=== PATIENT | female | born 1970 | race Caucasian/White ===

== ENCOUNTER → 2019-07-27 14:09 | Outpatient (CLI) | payer BC, SELFPAY ==
--- NOTE | ~2019-07-27 | XR_ITS ---
EXAMINATION: XR chest 2V EXAM DATE: 07/27/2019 14:51 INDICATION: Persistent cough. History breast cancer. History asthma. TECHNIQUE: Frontal and lateral projections of the chest obtained and reviewed. There is no prior ronnie dy for comparison. FINDINGS: Moderate hyperinflation. The lungs are clear. There are no pleural effusions. The cardio mediastinal silhouette is within normal limits. There is no pneumothorax suspected. The bones and s oft tissues are unremarkable. Right axillary surgical clips. IMPRESSION: No acute cardiopulmonary findings. Reviewed, dictated and finalized at location A. THERAPIST
== END ==
PROVIDERS: Visit Provider Otolaryngology
DX: R05 Cough (principal); J45.909 Unspecified asthma, uncomplicated; Z85.3 Personal history of malignant neoplasm of breast
CPT/HCPCS: 71046

== ENCOUNTER 2019-08-11 00:30 | Day surgery (SDC) | payer BC, SELFPAY ==
[2019-08-01 15:16] VITALS: BMI 20.7
--- NOTE | ~2019-08-11 | XR_ITS ---
EXAMINATION: XR surgery orthopedic EXAM DATE: 08/11/2019 08:34 INDICATION: Bunionectomy right foot. TECHNIQUE: Fluoroscopy used during XR surgery orthopedic performed by Dr. Anton Knight JR MD. The DAP for this procedure was 0.4 cGycm2. No prior study. FINDINGS: Images demonstrate postoperative change to the first metatarsal neck and head. There is al so proximal phalangeal osteotomy, surgical fixation device. Correlate with procedure note. IMPRESSION: Fluoroscopy used during right bunionectomy. Reviewed, dictated and finalized at location A. DATABASE ADMINISTRATOR
[2019-08-11] MEDS: LACTATED RINGERS 1,000 ML 30 ML IV CONT ×2 (06:29→08:58)
[2019-08-11 06:31] VITALS: BP 111/52; PULSE 82; RESP 20; TEMP 36.5; O2SAT 100
--- NOTE | 2019-08-11 06:49 | WPDANESEPPF ---
Anes - Initial Pre Proc Eval Procedure: Operation Date: 08/11/19 07:30 Proposed Procedures p Renaldo Efraín Bunionectomy Right Foot - Anton Knight JR, MD Date/Time: 08/11/19 06:49 Surgeon: Anton Knight JR, MD Pre Op Diagnosis: Bunion Right Foot Patient Data Age: 49 Gender: F Height: 5 ft 8.5 in Weight: 62.9 kg Last Vital Signs Temp 36.5 C 08/11/19 06:31 Pulse 82 08/11/19 06:31 Resp 20 08/11/19 06:31 BP 111/52 L 08/11/19 06:31 Pulse Ox 100 08/11/19 06:31 Allergies Allergy/AdvReac Type Severity Reaction Status Date / Time No Known Allergies Allergy Verified 08/01/19 15:15 Home Medications Medication Instructions Recorded Confirmed Type levothyroxine [Synthroid] 75 mcg PO DAILY 08/01/19 08/11/19 History tamoxifen 20 mg PO DAILY 08/01/19 08/11/19 History Patient hx anesthesia problems: none Family hx anesthesia problems: none PMFSH Past Medical History Medical History Breast CA Hypothyroid Social History Social History Smoking status: Never smoker Alcohol intake: current Anes - Eval Final PreProcedure Day of Procedure 08/11/19 06:49 Patient weight: normal Heart: regular rate and rhythm Lungs: clear to auscultation Airway: Mallampati scale class 1 Neurological: alert and oriented Last oral intake: >/= 8 hours ASA classification: II Emergent: no Anesthetic plan: proceed Anesthesia type and monitoring: general LMA and standard monitoring Informed Consent: The patient's anesthetic plan and its attendant risks and benefits were discussed with the patient/family/POA. Questions were solicited and answers provided to the satisfaction of the patient/family/POA.
[2019-08-11] MEDS: SCOPOLAMINE 1.5 MG PATCH TRANSDERM (06:54)
--- NOTE | 2019-08-11 07:15 | WPDHPUPDATE1 ---
History and Physical Update Update Date/Time: 08/11/19 07:15 History and Physical has been reviewed, including an updated exam of the patient. There are NO changes in the patient's condition. Risks, benefits, and alternatives have been discussed and questions answered. Patient agrees to proceed with procedure.
--- NOTE | 2019-08-11 07:29 | WPDANESPNB ---
Anes - Peripheral Nerve Block Date/Time: 08/11/19 07:29 I have discussed with the patient/family/POA the placement of a peripheral nerve block for post-operative pain management, including associated risks, benefits, complications, and side effects. Alternative methods of post-operative analgesia were detailed. Questions were solicited and answers provided to the satisfaction of the patient/family/POA. Time-Out: A pre-procedural Time-Out was completed immediately before starting the procedure and confirmed: Patient Identification, Site, Procedure, Patient Position and the Availability of Requisite Equipment. Clinical Indications: Acute post-operative pain management requested by the operative surgeon. Nerve Block Insertion Note Anes-nerve block: posterior fossa sciatic right and other (Saphenous right) Patient position: supine Skin prep: chlorhexidine Needle: 22 gauge, stimulating, insulated echogenic needle. Needle length: 80 mm Technique comment: .25 Injectate: bupivacaine 0.5% with epi 5 mcg/ml (20/10ml) and dexamethasone (mg) (8mg) Observations: tolerated well Complications: none Procedure start time:: 720 Procedure end time:: 726
[2019-08-11] MEDS: ceFAZolin 2 GM/D5W 50 ML 2 GM/50 ML BAG IVPB (07:31)
[2019-08-11] MEDS: KETOROLAC 30 MG/ML VIAL (*BKC) IV PUSH (08:29)
[2019-08-11 08:58] VITALS: BP 83/40; PULSE 77; RESP 16; O2SAT 100
--- NOTE | 2019-08-11 09:06 | PM.OP ---
Procedure Note - Brief Procedure Note - Brief Date of procedure: 08/11/19 Pre-op diagnosis: Bunion Right Foot Surgeon: Anton Knight JR, TUSHAR
--- NOTE | 2019-08-11 09:06 | PM.OP ---
Procedure Note - Brief Procedure Note - Brief Date of procedure: 08/11/19 Pre-op diagnosis: Bunion Right Foot Post-op diagnosis: same Procedure performed: Renaldo Efraín Bunionectomy right foot Anesthesia: GLMA Surgeon: Anton Knight JR, DPM Estimated blood loss (mL): 1 Complications: No immediate complications Condition: stable Disposition: same day
[2019-08-11 09:25] VITALS: BP 93/48; PULSE 71; RESP 16; O2SAT 97
--- NOTE | 2019-08-11 16:15 | OP_ITS ---
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 POSTOPERATIVE DIAGNOSIS: Hallux abductovalgus deformity of the right foot. PROCEDURE: Renaldo Efraín bunionectomy of the right foot. PATHOLOGY: None. ANESTHESIA: General with popliteal fossa block. HEMOSTASIS: Pneumatic ankle tourniquet at 250 mmHg. ESTIMATED BLOOD LOSS: Minimal. MATERIALS USED: Three 3.0 mm Jodie cannulated compression screws, one 8 mm [place]way compression Nitinol staple, 3-0 PDS, 4-0 Vicryl and 4-0 Monocryl. INJECTABLES: None. COMPLICATIONS: None. PROCEDURE IN DETAIL: Under mild sedation, the patient was brought into the operating room and placed on the operating table in the supine position. Pneumatic ankle tourniquet was placed about the patient's right ankle. Following general anesthesia and a previous popliteal fossa block, the foot was then scrubbed, prepped, and draped in the usual aseptic manner. An Esmarch bandage was then used to exsanguinate the patient's right foot and the pneumatic ankle tourniquet was then inflated. Attention was directed to the medial aspect of the first metatarsophalangeal joint of the right foot, where a 6 cm longitudinal incision was made along the medial aspect of the first metatarsophalangeal joint medial to the extensor hallucis longus tendon. This involved the contour of the deformity and was between the plantar and dorsal skin. The incision was continued deep down through the subcutaneous tissues using sharp and blunt dissection. Care was taken to identify and retract all viable neurovascular structures. All bleeders were ligated and cauterized as necessary. At this time, the dissection was continued lateral towards the first interspace via the original skin incision, where the tendon of the extensor hallucis brevis was initially identified and transected. The dissection was continued deep using blunt dissection down to the level of the fibular sesamoid, which was freed of its soft tissue attachments proximally, laterally and distally. The conjoined tendon of the adductor hallucis muscle was then identified and transected at its attachment to the base of the proximal phalanx of the hallux. At this time, the lateral contracture present on the hallux was noted to be reduced and the sesamoid apparatus was noted to float into a more corrected medial position. At this time, a linear capsulotomy was performed over the medial aspect of the first metatarsophalangeal joint. The periosteum and capsular structures were then carefully dissected free of the osseous attachments and reflected medially and laterally thus exposing the head of the first metatarsal at the operative site. Next, a sagittal bone saw was used to resect the medial prominence as well as the dorsal prominence and passed from the operative field. Attention was then directed to the medial aspect of the 1st metatarsal head where through and through V type osteotomy was created in the metaphyseal region of the bone utilizing a sagittal bone saw. The apex of the osteotomy pointed distally with the arms pointing proximal plantarly and proximal dorsally. The dorsal arm was made longer to accommodate internal fixation. Upon completion of the osteotomy, the capital fragment was distracted, and shifted laterally into a more corrected position and impacted upon the 1st metatarsal shaft. At this time, three 0.045 inch K-wires were driven from dorsal to plantar across the osteotomy site to serve as temporary fixation. These K-wires were also serving as guidewires for the 3.0 mm Jodie compression screws. Utilizing standard principles and techniques, three 3.0 mm Jodie partially-threaded cannulated screws were driven from dorsal to plantar acro
== END 2019-08-11 09:47 | disposition home or self-care (01) ==
PROVIDERS: Visit Provider Podiatrist Foot & Ankle Surgery
PROC: (CPT 28299; principal; 2019-08-11 07:30)
DX: M20.11 Hallux valgus (acquired), right foot (principal); G89.18 Other acute postprocedural pain; E03.9 Hypothyroidism, unspecified; Z85.3 Personal history of malignant neoplasm of breast; Z79.810 Long term (current) use of selective estrogen receptor modulators (SERMs)
CPT/HCPCS: 28299; 64450; 64445; A9270; C1713; J0131; J0690; J1100; J1885; J2250; J2405; J2704; J3010; J7120

== ENCOUNTER 2019-09-05 07:51 | Outpatient (CLI) | payer BC, SELFPAY ==
[2019-09-05 08:07] LABS: Basophils Absolute Auto 0.1 K/mm3 (0.0-0.1); Eosinophils Absolute Auto 0.2 K/mm3 (0-0.3); Eosinophils Percent Auto 3.1 % (0-4.4); Hemoglobin 12.1 g/dL (12.0-15.0); Immature Granulocyte Absolute 0.01 K/mm3 (0.00-0.031); Immature Granulocyte Percent A 0.2 % (0-0.5); Lymphocytes Absolute Auto 2.04 K/mm3 (0.9-3.2); Lymphocytes Percent Auto 41.5 % (18.3-44.2); Mean Corpuscular HGB Conc 32.7 g/dl (32-36); Mean Corpuscular Hemoglobin 27.9 pg (26-34); Mean Corpuscular Volume 85.3 fl (80-100); Mean Platelet Volume 11.1 fl (7.4-10.4); Monocytes Absolute Auto 0.4 K/mm3 (0.1-0.6); Monocytes Percent Auto 7.3 % (2.6-8.5); Neutrophils Absolute Auto 2.3 K/mm3 (1.3-6.7); Neutrophils Percent Auto 46.9 % (45.5-73.1); Platelet Count Result 216 k/mm3 (150-375); Red Blood Count 4.34 M/mm3 (4.2-5.4); Red Cell Distribution Width 13.2 % (11.5-14.5); White Blood Count 4.9 K/mm3 (4.5-10.0)
[2019-09-05 08:16] LABS: Hemoglobin A1C 5.3 % (<5.7)
[2019-09-05 08:21] LABS: Alanine Aminotransferase 12 U/L (4-35); Albumin Level 4.1 g/dL (3.5-5.1); Alkaline Phosphatase 74 U/L (38-126); Aspartate Amino Transferase 19 U/L (14-36); Bilirubin,Total 0.3 mg/dL (0.2-1.3); Blood Urea Nitrogen 13 mg/dL (7-17); CRP < 0.5 mg/dL (<1.0); Calcium 9.2 mg/dL (8.4-10.2); Carbon Dioxide 28 mmol/L (22-30); Chloride 107 mmol/L (98-107); Cholesterol 189 mg/dL (0-200); Estimated Glomerular Filt Rate > 60; Glucose 91 mg/dL (65-105); HDL Direct 62 mg/dL; Magnesium 2.2 mg/dL (1.6-2.3); Potassium 4.3 mmol/L (3.4-5.0); Sodium 141 mmol/L (137-145); Triglycerides 157 mg/dL (<150)
[2019-09-05 08:30] LABS: LDL Cholesterol Direct 92 mg/dL
[2019-09-05 08:45] LABS: Iron 112 ug/dL (37-170)
[2019-09-05 08:49] LABS: Erythrocyte Sedimentation Rate 15 mm/hr (0-20)
[2019-09-05 08:54] LABS: Percent Iron Saturation 35 % (20-50)
[2019-09-05 09:02] LABS: Free T4 Free Thyroxine 0.95 ng/mL (0.78-2.19)
[2019-09-07 05:18] LABS: Homocysteine 6.7 umol/L (<10.4)
== END 2019-09-05 07:52 | disposition home or self-care (01) ==
PROVIDERS: PCP Internal Medicine; Visit Provider Internal Medicine
DX: E03.9 Hypothyroidism, unspecified (principal); Z79.899 Other long term (current) drug therapy; I47.1 Supraventricular tachycardia; R00.2 Palpitations
CPT/HCPCS: 36415; 80053; 80061; 82728; 83036; 83090; 83540; 83550; 83735; 84439; 84443; 85025; 85652; 86140

== ENCOUNTER 2019-10-18 10:55 | Outpatient (CLI) | payer BC, SELFPAY ==
[2019-10-19 10:15] LABS: Reference Lab Test Result Negative
== END 2019-10-18 10:56 | disposition home or self-care (01) ==
PROVIDERS: PCP Internal Medicine; Visit Provider Internal Medicine
DX: Z20.828 Contact with and (suspected) exposure to other viral communicable diseases (principal)
CPT/HCPCS: 36415; 86769

== ENCOUNTER 2019-10-23 07:45 | Outpatient (CLI) | payer BC, SELFPAY ==
--- NOTE | 2019-10-23 | ECHO_ITS ---
Patient Info Name: Aleshia Santiago Age: 49 years : 1970 Gender: Female Ht: 68 in Wt: 140 lbs BSA: 1.74 m2 HR: 95 bpm BP: 96 / 70 mmHg Technical Quality: Fair Exam Date: 10/23/2019 8:01 AM Exam Location: [facility] Patient Status: Outpatient Admit Date: 10/23/2019 Staff Ordering Physician: Koko Lozano MD Rental Sales Representative: Macarena Roland RDCS Attending Provider: Koko Lozano MD Referring Physician: Marta ROSS; Exam Type: CA echo doppler color flow Study Info Indications R00.2 - Palpitations I47.1 - Supraventricular tachycardia Complete two-dimensional, color flow and Doppler transthoracic echocardiogram is performed. Summary 1. Left ventricular chamber dimension is normal. 2. Left ventricular systolic function is normal, estimated at 60-65%. 3. The left ventricular diastolic function is normal. 4. E/e' 6 is not elevated. 5. No pulmonary hypertension, estimated pulmonary arterial systolic pressure is 21 mmHg. 6. Normal inferior vena cava with <50% collapse upon inspiration consistent with elevated right atrial pressure, 10 mmHg. Left Ventricle E/e' 6 is not elevated. Left ventricular chamber dimension is normal. Left ventricular systolic function is normal, estimated at 60-65%. The left ventricular diastolic function is normal. Right Ventricle Right ventricular chamber dimension is normal. Right ventricular systolic function is normal. Left Atria Left atrial chamber dimension is normal. Right Atria Right atrial chamber dimension is normal. Aortic Valve The aortic valve is trileaflet. There is no aortic valve stenosis. There is no aortic valve regurgitation. Pulmonic Valve There is no pulmonic regurgitation. Mitral Valve There is no mitral valve stenosis. There is no mitral valve regurgitation. Tricuspid Valve There is no tricuspid valve regurgitation. No pulmonary hypertension, estimated pulmonary arterial systolic pressure is 21 mmHg. Pericardium/Pleural There is no pericardial effusion. Inferior Vena Cava Normal inferior vena cava with <50% collapse upon inspiration consistent with elevated right atrial pressure, 10 mmHg. Aorta The aortic root size at the sinus of Valsalva is normal. Left Ventricular Outflow Tract Name Value Normal LVOT 2D LVOT Diameter 1.9 cm LVOT Doppler LVOT Peak Gradient 4 mmHg LVOT Mean Gradient 2 mmHg LVOT VTI 19 cm LVOT VTI/AV VTI Ratio 0.7 LVOT Stroke Volume 54 ml LVOT CO 4.0 l/min LVOT CI 2.3 l/min/m2 Pulmonic Valve Name Value Normal RVOT Doppler RVOT Peak Gradient 3 mmHg PV Doppler
== END 2019-10-23 07:46 | disposition home or self-care (01) ==
PROVIDERS: PCP Internal Medicine; Visit Provider Internal Medicine
DX: I47.1 Supraventricular tachycardia (principal); R00.2 Palpitations
CPT/HCPCS: 93306

== ENCOUNTER 2019-11-14 10:14 | Outpatient (CLI) | payer BC, SELFPAY ==
--- NOTE | ~2019-11-14 | DEXA_ITS ---
Bone Density Report Name: Aleshia Santiago Age: 49 Sex: Female Ethnicity: White Date of : 1970 Indication: postmenopausal; height loss; cancer; Referring Provider: MARITA SARAH Study: Bone densitometry was performed. Exam Date: November 14, 2019 Accession number: [id number] Bone Density: Region BMD T-score Z-score Classification AP Spine (L1-L4) 0.877 -1.5 -0.9 Osteopenia Femoral Neck (Left) 0.682 -1.5 -0.9 Osteopenia Total Hip (Left) 0.909 -0.3 0.1 Normal Total Hip Bilateral Avg 0.883 -0.5 -0.1 Normal Femoral Neck (Right) 0.662 -1.7 -1.1 Osteopenia Total Hip (Right) 0.855 -0.7 -0.3 Normal World Health Organization criteria for BMD impression classify patients as: Normal (T-score at or above -1.0), Osteopenia (T-score between -1.0 and -2.5), or Osteoporosis (T-score at or below -2.5). 10-year Fracture Risk(1): Major Osteoporotic Fracture 3.8% Hip Fracture 0.4% Reported Risk Factors: [place] (), Neck BMD=0.662, BMI=21.0 (1) FRAX(R) Version 3.08. Fracture probability calculated for an untreated patient. Fracture probability may be lower if the patient has received treatment. Clinical Information Provided by Patient: Has used the following medications: Vitamin D Has the following medical conditions: Cancer Patient maximum height was 69 Menopause Age: 48 Drinks caffeinated beverages Onset of menses at age 17 Number of children 1 Impression: The patient has low bone mass, based on the Right Femoral Neck T-score. The patient has an estimated ten-year risk of hip fracture of 0.4% and an estimated ten-year risk of major fracture of 3.8%, based on the WHO FRAX algorithm. Discussion: BONE DENSITY IS LOW AT ONE OR MORE SKELETAL SITES. This patient's lowest T-score is low at one or more skeletal sites. It meets the World Health Organization's (WHO) criteria for ?low bone mass? (T-score between -1.0 and -2.5). The patient's 10-year risk of fracture as calculated by FRAX is less than the threshold where pharmacological therapy is recommended by the National Osteoporosis Foundation (NOF). However, all treatment decisions require clinical judgment and consideration of individual patient factors, including patient preferences, comorbidities, previous drug use, risk factors not captured in the FRAX model (e.g., frailty, falls, vitamin D deficiency, increased bone turnover, interval significant decline in bone density) and possible under or overestimation of fracture risk by FRAX. The patient should follow a healthful lifestyle (good nutrition with adequate calcium and vitamin D, and appropriate weight-bearing exercise). Follow-Up: Consider repeating this study in 2 to 3 years to reassess this patient's status, or sooner if there is some new clinical indication. Reported by: OLEKSANDR on 11/14/2019 10:44:00
== END 2019-11-14 10:15 | disposition home or self-care (01) ==
LOC: ANHIMG 10:16
PROVIDERS: PCP Internal Medicine; Visit Provider Internal Medicine
DX: N95.1 Menopausal and female climacteric states (principal); Z92.21 Personal history of antineoplastic chemotherapy; M85.89 Other specified disorders of bone density and structure, multiple sites
CPT/HCPCS: 77080

== ENCOUNTER 2019-11-15 16:17 | Outpatient (CLI) | payer BC, SELFPAY ==
[2019-11-15 17:16] LABS: Parathyroid Intact 79.3 pg/mL (7.5-53.5)
== END 2019-11-15 16:18 | disposition home or self-care (01) ==
PROVIDERS: PCP Internal Medicine; Visit Provider Internal Medicine
DX: M85.80 Other specified disorders of bone density and structure, unspecified site (principal)
CPT/HCPCS: 36415; 83970

== ENCOUNTER 2019-11-21 13:08 | Outpatient (CLI) | payer BC, SELFPAY ==
--- NOTE | ~2019-11-21 | US_ITS ---
US thyroid INDICATION: Increased parathyroid hormone. Hypothyroidism. TECHNIQUE: Real-time sonographic images of the thyroid gland were obtained. COMPARISON: No prior studies for comparison. FINDINGS: The right thyroid lobe measures 4.2 x 1.3 x 1 cm. The left thyroid lobe measures 3 x 1.1 x 0.8 cm. There is normal echotexture and echogenicity throughout the thyroid gland. No discrete nodul es identified. Normal vascular flow is present. IMPRESSION: 1. Normal thyroid without discrete nodule or abnormal vascularity. Reviewed, dictated and finalized at location A.
--- NOTE | ~2019-11-21 | NM_ITS ---
EXAMINATION: NM parathyroid imaging w spect DATE: 11/21/2019 16:21 INDICATION: Hyperparathyroidism. TECHNIQUE: 21.3 mCi Tc99m sestamibi was administered intravenously. Anterior images of the neck were obtained immediately and at 2 hours. SPECT images of the neck were obtained. COMPARISON: Thyroid ultrasound 11/21/2019 FINDINGS: There is no focus of persistent activity in the area of the thyroid or mediastinum to sugge st parathyroid adenoma. IMPRESSION: 1. No evidence of a parathyroid adenoma. Reviewed, dictated and finalized at location A.
== END 2019-11-21 13:09 | disposition home or self-care (01) ==
PROVIDERS: PCP Internal Medicine; Visit Provider Internal Medicine
DX: E34.9 Endocrine disorder, unspecified (principal)
CPT/HCPCS: 76536; 78071; A9500

== ENCOUNTER 2020-02-12 00:53 | Outpatient (CLI) | payer BC, SELFPAY ==
[2020-02-12 19:34] LABS: SARS-CoV-2 RNA PCR Negative
== END 2020-02-12 00:54 | disposition home or self-care (01) ==
LOC: ANHCOVIDDT 00:53
PROVIDERS: PCP Internal Medicine; Visit Provider Obstetrics & Gynecology
DX: Z01.812 Encounter for preprocedural laboratory examination (principal); Z20.828 Contact with and (suspected) exposure to other viral communicable diseases
CPT/HCPCS: 87635; C9803; U0003

== ENCOUNTER 2020-02-14 02:45 | Day surgery (SDC) | payer BC, SELFPAY ==
[2020-02-07 14:10] VITALS: BMI 20.7
--- NOTE | 2020-02-13 12:49 | P.PNAN_ITS ---
Anes - Initial Pre Proc Eval Procedure: Operation Date: 02/14/20 14:30 Proposed Procedures p Hysteroscopy Dilation and Curettage - Ye Tobar MD Date/Time: 02/13/20 12:49 Surgeon: Ye Tobar MD Pre Op Diagnosis: Post Menopausal Bleeding Patient Data Age: 49 Gender: F Height: 5 ft 8.5 in Weight: 62.6 kg Allergies Allergy/AdvReac Type Severity Reaction Status Date / Time No Known Allergies Allergy Verified 02/07/20 14:10 Home Medications Medication Instructions Recorded Confirmed Type clonazepam 0.5 mg tablet 0.5 mg PO DAILY PRN #30 tablet 11/22/19 02/14/20 Rx levothyroxine 75 mcg tablet 75 mcg PO DAILY #90 tablet 01/17/20 02/14/20 Rx bupropion HCl 150 mg 24 hr tablet, 300 mg PO QAM #180 tablet 01/18/20 02/14/20 Rx extended release Patient hx anesthesia problems: post op nausea/vomiting (with GA; will give Ondansetron) Family hx anesthesia problems: none PMFSH Past Medical History Medical History BMI 20.0-20.9, adult BMI 21.0-21.9, adult Breast CA Cervicalgia Cough Elevated parathyroid hormone Encounter for preventive health examination Encounter to establish care Exposure to COVID-19 virus GERD (gastroesophageal reflux disease) Heart palpitations History of chemotherapy Hot flashes Hx of breast cancer Hypersomnolence Hypothyroid Hypothyroidism (acquired) Insomnia Mild reactive airways disease On superintendent terminal drug therapy Post menopausal syndrome SVT (supraventricular tachycardia) Surgical History Surgical History H/O right breast biopsy H/O umbilical hernia repair Hx of section S/P cholecystectomy Status post bunionectomy Social History Social History Smoking status: Never smoker Alcohol intake: current Anes - Eval Final PreProcedure Day of Procedure 02/13/20 12:49 Patient weight: normal Heart: regular rate and rhythm Lungs: clear to auscultation Airway: Mallampati scale class II Neurological: alert and oriented Last oral intake: >/= 8 hours ASA classification: II Emergent: no Anesthetic plan: proceed Anesthesia type and monitoring: general GIVS and standard monitoring Informed Consent: The patient's anesthetic plan and its attendant risks and benefits were discussed with the patient/family/POA. Questions were solicited and answers provided to the satisfaction of the patient/family/POA.
--- NOTE | 2020-02-13 23:11 | PM.IMHP ---
H&P: HPI History of Present Illness Date/Time: 02/13/20 23:11 Chief complaint: Post Menopausal Bleeding Narrative: 49 y/o who has finished a 10 year course of tamoxifen after treatment for invasive breast cancer. She was menopausal after chemotherapy, but has just had an episode of vaginal bleeding. Ultrasound exam in the office demonstrates an inhomogeneous endometrium measuring 4.35mm. Bilateral ovaries are unremarkable. No free fluid is noted. Review of Systems Review of Systems: All systems reviewed & are unremarkable except as noted in HPI and below PMFSH Past Medical History Medical History BMI 20.0-20.9, adult BMI 21.0-21.9, adult Breast CA Cervicalgia Cough Elevated parathyroid hormone Encounter for preventive health examination Encounter to establish care Exposure to COVID-19 virus GERD (gastroesophageal reflux disease) Heart palpitations History of chemotherapy Hot flashes Hx of breast cancer Hypersomnolence Hypothyroid Hypothyroidism (acquired) Insomnia Mild reactive airways disease On fpc drug therapy Post menopausal syndrome SVT (supraventricular tachycardia) Surgical History Surgical History H/O right breast biopsy H/O umbilical hernia repair Hx of section S/P cholecystectomy Status post bunionectomy Social History Social History Smoking status: Never smoker Alcohol intake: current Meds Home Medications and Allergies Home Medications Medication Instructions Recorded Confirmed Type clonazepam 0.5 mg tablet 0.5 mg PO DAILY PRN #30 tablet 11/22/19 02/07/20 Rx levothyroxine 75 mcg tablet 75 mcg PO DAILY #90 tablet 01/17/20 02/07/20 Rx bupropion HCl 150 mg 24 hr tablet, 300 mg PO QAM #180 tablet 01/18/20 02/07/20 Rx extended release Allergies Allergy/AdvReac Type Severity Reaction Status Date / Time No Known Allergies Allergy Verified 02/07/20 14:10 Exam Const: Orientation/consciousness: patient oriented x3 Other: Well-developed, well-nourished female in no acute distress. Neck: Thyroid: thyroid normal Lymphatic: no lymphadenopathy noted (in neck, axilla or inguinal nodes) Resp: Effort & Inspection: normal respiratory effort Auscultation: clear to auscultation bilaterally Cardio: Rate: regular rate Rhythm: regular rhythm Heart sounds: S1 normal heart sound present and S2 normal heart sound present GI: Other: ABD: Soft, nontender, nondistended. No guarding or rebound tenderness. No hepatosplenomegaly. : General: Yes no CVA tenderness Other: External genitalia: normal female hair distribution, without lesion. Urethral meatus: no lesion, non prolapsed. Bladder: no mass, nontender Vagina: poorly-estrogenized, without lesion or discharge. No cystocele or rectocele. Cervix: no lesion or discharge. Uterus: small, anteverted, freely mobile, nontender Adnexa: no mass or tenderness. Anus/perineum: no lesions, nontender Back/Spine/Pelvis: Back: no CVA tenderness Skin: General skin exam: normal color and no rashes or lesions noted Neuro: General: patient oriented x3 Extrem: Other: Extremities: nontender with no edema Psych: Mental Status: mental status grossly normal Affect: normal affect Assessment and Plan Assessment and plan (1) Postmenopausal bleeding: Code(s): N95.0 - Postmenopausal bleeding Status: Acute Assessment and Plan: A: Postmenopausal vaginal bleeding with abnormal pelvic ultrasound, in the setting of fpc tamoxifen therapy. P: I recommended more thorough evaluation of the endometrium. She would like to go ahead with hysteroscopy / D&C. She understands risks of surgery to include risks of anesthesia, risks of pain, infection, bleeding, blood products, thromboembolic phenomena and damage to adjacent structures such as bowel, bladde
--- NOTE | 2020-02-14 12:07 | WPDHPUPDATE1 ---
History and Physical Update Update Date/Time: 02/14/20 12:07 History and Physical has been reviewed, including an updated exam of the patient. There are NO changes in the patient's condition. Risks, benefits, and alternatives have been discussed and questions answered. Patient agrees to proceed with procedure.
[2020-02-14 12:30] VITALS: BP 132/68; PULSE 94; RESP 20; TEMP 36.3; O2SAT 100
[2020-02-14] MEDS: LACTATED RINGERS 1,000 ML 30 ML IV CONT ×2 (12:35→15:00)
[2020-02-14] MEDS: ACETAMINOPHEN 500 MG TABLET 1000 MG PO (12:40)
--- NOTE | 2020-02-14 13:31 | PM.PROC ---
Procedure Note - Detailed Date of procedure: 02/14/20 Pre-op diagnosis: Post Menopausal Bleeding Postmenopausal vaginal bleeding Abnormal pelvic ultrasound Post-op diagnosis: same Procedure performed: Hysteroscopy D&C Description of procedure: The patient was taken to the operating room where she was prepared and draped in the usual sterile fashion in the dorsal lithotomy position. A sterile speculum was placed into the vagina. The anterior lip of the cervix was grasped with single-tooth tenaculum. Ten mL of 1% lidocaine was administered in a paracervical block. The cervix was then gently dilated using Hegar dilators until an 8 mm dilator could be passed. Hysteroscopy was performed using sterile saline as a distention medium. Findings are as noted above. Sharp curettage was then performed, and endometrial curettings were collected on a Telfa pad and passed off to be sent to pathology. Hemostasis was excellent. Sponge, lap, needle and instrument counts were correct. The patient was awakened and taken to the recovery room in stable condition. I was present and scrubbed through the entire procedure. Implants: None Anesthesia: MAC and local (1% lidocaine paracervical block) Surgeon: Ye Tobar MD Estimated blood loss (mL): 5 Drains: No Packing: No Pathology: yes (Endometrial curettings) Complications: None Condition: stable Disposition: PACU Findings: Unremarkable endometrial cavity. Both tubal ostia seen.
[2020-02-14 13:34] VITALS: BP 82/40; PULSE 85; RESP 14; TEMP 36.5; O2SAT 96
[2020-02-14 13:59] VITALS: BP 91/46; PULSE 72; RESP 14
[2020-02-14 14:30] VITALS: BP 102/57; PULSE 64; RESP 16
[2020-02-14 15:00] VITALS: BP 100/66; PULSE 61; RESP 16
== END 2020-02-14 15:15 | disposition home or self-care (01) ==
PROVIDERS: PCP Internal Medicine; Visit Provider Obstetrics & Gynecology
PROC: 0U5B8ZZ Destruction of Endometrium, Via Natural or Artificial Opening Endoscopic (ICD-10-PCS; CPT 58563; principal; 2020-02-14 14:30)
DX: N95.0 Postmenopausal bleeding (principal); Z85.3 Personal history of malignant neoplasm of breast; Z92.21 Personal history of antineoplastic chemotherapy; E03.9 Hypothyroidism, unspecified; K21.9 Gastro-esophageal reflux disease without esophagitis; I47.1 Supraventricular tachycardia; G47.00 Insomnia, unspecified; Z79.899 Other long term (current) drug therapy; N88.8 Other specified noninflammatory disorders of cervix uteri
CPT/HCPCS: 58558; 88305; A9270; J1100; J2250; J2405; J2704; J3010; J7030; J7120

== ENCOUNTER 2020-03-10 08:39 | Emergency (ER) | payer BC, SELFPAY ==
--- NOTE | ~2020-03-10 | XR_ITS ---
XR knee RT 3V DATE: 03/10/2020 09:07 INDICATION: Fall one day ago; medial and anterior pain TECHNIQUE: Seguin and AP and lateral views COMPARISON: None FINDINGS: No fracture or dislocation or joint effusion. No periosteal reaction or bone destruction. J oint spaces are well preserved. No radiopaque intra-articular loose body or chondrocalcinosis. IMPRESSION: Negative Reviewed, dictated and finalized at location A. IMPRESSION: Negative
[2020-03-10 08:42] VITALS: BP 123/71; PULSE 94; RESP 18; TEMP 36.6; O2SAT 100
--- NOTE | 2020-03-10 09:19 | ED.LOWEXIN ---
HPI - Extremity Injury (Lower) General Chief Complaint: Extremity Injury, Lower Stated Complaint: fall/right knee injury Time Seen by Provider: 03/10/20 09:11 Source: patient History of Present Illness HPI Narrative: Patient presents emergency department for right knee pain that started earlier this morning. Patient states she was exiting a tent, tripped over the entrance, landing on her left knee, and twisting her right knee. Patient states this feels like her ACL tear to her left knee which she had in the past before when she was 22. She took 800 of Motrin this morning. Pain is worse with movement. Denies numbness or tingling. Related Data Allergies Allergy/AdvReac Type Severity Reaction Status Date / Time No Known Allergies Allergy Verified 03/10/20 08:45 Review of Systems Review of Systems: Narrative: CONSTITUTIONAL: Denies fever, chills, or sweats. EYES: Denies visual changes, redness, or discharge. ENT: Denies rhinorrhea, congestion, sore throat, or otalgia. CARDIOVASCULAR: Denies chest pain, palpitations, or edema. RESPIRATORY: Denies cough or dyspnea. GASTROINTESTINAL: Denies abdominal pain, nausea, vomiting, or diarrhea. GENITOURINARY: Denies dysuria or hematuria. SKIN: Denies rash or itching. MUSCULOSKELETAL: Denies back pain. Reports right knee pain. NEUROLOGIC: Denies headache, numbness, dizziness, or weakness. PSYCHIATRIC: Denies anxiety or depression. All systems reviewed & are unremarkable except as noted in HPI and below (ROS) [facility] Past Medical History Medical History BMI 20.0-20.9, adult BMI 21.0-21.9, adult Breast CA Cervicalgia Cough Elevated parathyroid hormone Encounter for preventive health examination Encounter to establish care Exposure to COVID-19 virus GERD (gastroesophageal reflux disease) Heart palpitations History of chemotherapy Hot flashes Hx of breast cancer Hypersomnolence Hypothyroid Hypothyroidism (acquired) Insomnia Mild reactive airways disease On custodial drug therapy Post menopausal syndrome SVT (supraventricular tachycardia) Surgical History Surgical History H/O right breast biopsy H/O umbilical hernia repair Hx of section S/P cholecystectomy Status post bunionectomy Social History Social History Smoking status: Never smoker Alcohol intake: current Gender identity (if verbalized by the patient): Female Exam Narrative: Exam Narrative: GENERAL: Well-appearing, well-nourished, and in no acute distress. HEAD: Normocephalic, atraumatic. EYES: PERRLA and EOMI. ENT: Nares clear, no rhinorrhea or epistaxis. Mucous membranes moist. NECK: Supple. CHEST: Clear to auscultation. No respiratory distress. HEART: Regular rate and rhythm. No murmur heard. Normal peripheral pulses. ABDOMEN: Soft, nontender, nondistended, normal active bowel sounds. EXTREMITIES: Right knee pain with valgus force. Medial right knee swelling. Pain to right knee with range of motion SKIN: Warm, dry, no rash. NEURO: No focal deficits. Alert and oriented x3. PSYCH: Normal mood and affect. Course Reevaluation(s) Reevaluation #1: 9:50AM -reevaluated patient, no new complaints. Patient likely has problem with ACL, MCL, or possibly meniscal tear. Will prescribe knee brace, patient states she has crutches at home. Counseled patient to rest ice, and elevate the knee. Counseled patient to follow-up with her orthopedic surgeon within 1 week. Return to emergency department if symptoms persist, worsen, or other concerns. Can take NSAIDs or Tylenol as needed for pain. Vital Signs Vital signs: Vital Signs Temperature 36.6 C 03/10/20 08:42 Pulse Rate 94 03/10/20 08:42 Respiratory Rate 18 03/10/20 08:42 Blood Pressure 123/71 03/10/20 08:42 Pulse Oximetry 100 03/10/20 08:42 Temperature 36.6 C 03/10/20 08
[2020-03-10] MEDS: ACETAMINOPHEN 325 MG TABLET 650 MG PO (09:38)
[2020-03-10] MEDS: KETOROLAC (*BKC) 60 MG/2 ML VIAL 15 MG IM (09:39)
[2020-03-10 10:18] VITALS: BP 128/88; PULSE 80; RESP 20; O2SAT 100
== END 2020-03-10 10:20 | disposition home or self-care (01) ==
PROVIDERS: Emergency Provider Emergency Medicine; PCP Internal Medicine
DX: M25.561 Pain in right knee (principal); Z85.3 Personal history of malignant neoplasm of breast; K21.9 Gastro-esophageal reflux disease without esophagitis; Z92.21 Personal history of antineoplastic chemotherapy; E03.9 Hypothyroidism, unspecified; J45.909 Unspecified asthma, uncomplicated; W01.0XXA Fall on same level from slipping, tripping and stumbling without subsequent striking against object, initial encounter; X50.9XXA Other and unspecified overexertion or strenuous movements or postures, initial encounter
CPT/HCPCS: 73562; 96372; 99283; A9270; J1885

== ENCOUNTER 2020-04-06 08:11 | Outpatient (CLI) | payer BC, SELFPAY ==
--- NOTE | ~2020-04-06 | CT_ITS ---
EXAMINATION:CT chest wo con DATE: 04/06/2020 08:33 INDICATION: Chronic cough. TECHNIQUE: Computed tomography (CT) of the chest was performed without intravenous contrast. Automate d exposure control and iterative reconstruction technique were employed. The dose-length product (DLP ) was 142.83 mGy-cm. COMPARISON: None. FINDINGS: There is mild scarring at right lung apex and anterolateral aspect of right lung, likely ra diation fibrosis. There is minimal scarring at left lung apex. Calcified left lung nodules and calcif ied left hilar and mediastinal lymph nodes are consistent with old granulomatous disease. No pleural effusion. The heart size is normal. No pericardial effusion. There are surgical clips in right axilla . Calcifications in the spleen are consistent with old granulomatous disease. There are 4 masses in t he liver measuring up to 3.7 cm. There are changes of cholecystectomy. The bones are unremarkable. IMPRESSION: 1. Liver masses suspicious for metastatic disease. Abdomen MRI without and with contrast is recommend ed. 2. 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 Reviewed, dictated and finalized at location A. IMPRESSION: 1. Liver masses suspicious for metastatic disease. Abdomen MRI without and with contrast is recommended. 2. 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
== END 2020-04-06 08:12 | disposition home or self-care (01) ==
PROVIDERS: PCP Internal Medicine; Visit Provider Otolaryngology
DX: R91.8 Other nonspecific abnormal finding of lung field (principal); K76.9 Liver disease, unspecified
CPT/HCPCS: 71250

== ENCOUNTER 2020-04-08 14:29 | Outpatient (CLI) | payer BC, SELFPAY ==
[2020-04-08 15:23] LABS: Anion Gap 8 mmol/L (8-16); Blood Urea Nitrogen 16 mg/dL (7-17); Calcium 9.3 mg/dL (8.4-10.2); Carbon Dioxide 30 mmol/L (22-30); Chloride 103 mmol/L (98-107); Cholesterol 220 mg/dL (0-200); Estimated Glomerular Filt Rate > 60; Glucose 93 mg/dL (65-105); HDL Direct 86 mg/dL; Potassium 4.3 mmol/L (3.4-5.0); Sodium 141 mmol/L (137-145); Triglycerides 156 mg/dL (<150)
[2020-04-08 15:33] LABS: LDL Cholesterol Direct 114 mg/dL
[2020-04-08 16:16] LABS: Free T4 Free Thyroxine 0.89 ng/mL (0.78-2.19); Vitamin D 25 Hydroxy 48.3 ng/mL
[2020-04-08 17:18] LABS: Parathyroid Intact 69.6 pg/mL (7.5-53.5)
== END 2020-04-08 14:30 | disposition home or self-care (01) ==
LOC: ANHLAB 14:30
PROVIDERS: PCP Internal Medicine; Visit Provider Internal Medicine
DX: Z79.899 Other long term (current) drug therapy (principal); E03.9 Hypothyroidism, unspecified; E34.9 Endocrine disorder, unspecified
CPT/HCPCS: 36415; 80048; 80061; 82306; 82310; 83970; 84439; 84443

== ENCOUNTER 2020-04-15 14:02 | Outpatient (CLI) | payer BC, SELFPAY ==
--- NOTE | ~2020-04-15 | MR_ITS ---
EXAMINATION: MR abdomen wo/w con DATE: 04/15/2020 16:09 INDICATION: Hepatomegaly, not elsewhere classified. Liver masses. Breast cancer. TECHNIQUE: Magnetic resonance imaging (MRI) of the abdomen was performed without and with 10 mL Multi Merrill intravenous contrast. Sequences included coronal T2-weighted FS FSE, coronal and axial FS FIEST A, axial T2-weighted FSE, coronal LAVA-flex, axial STIR FSE, axial DWI, axial dual-echo T1-weighted F SPGR, and axial LAVA. Postcontrast sequences included coronal LAVA-flex and a time course of axial LA VA. COMPARISON: Chest CT 04/06/2020 FINDINGS: There are approximately 9 hyperenhancing masses scattered in the liver. The largest masses demonstrat e interrupted peripheral puddling of contrast, consistent with hemangiomas. None of the masses demons trate washout. There are changes of cholecystectomy. The spleen, pancreas, adrenal glands, and kidney s are normal. There are no dilated loops of bowel. There are no pathologically enlarged lymph nodes. There is no free intraperitoneal fluid. There are lesions of increased T2-weighted signal intensity i n the T10 and T12 vertebral bodies and right ilium measuring up to 15 mm. IMPRESSION: 1. Liver masses, likely benign. 2. Bone lesions, most likely atypical hemangiomas. Metastatic disease cannot be excluded. Reviewed, dictated and finalized at location A.
== END 2020-04-15 14:03 | disposition home or self-care (01) ==
PROVIDERS: PCP Internal Medicine; Visit Provider Internal Medicine
DX: R16.0 Hepatomegaly, not elsewhere classified (principal); K76.9 Liver disease, unspecified; R93.7 Abnormal findings on diagnostic imaging of other parts of musculoskeletal system
CPT/HCPCS: 74183; A9577

== ENCOUNTER 2020-04-22 07:32 | Outpatient (CLI) | payer BC, SELFPAY ==
--- NOTE | ~2020-04-22 | XR_ITS ---
EXAMINATION: XR thoracic spine 3V DATE: 04/22/2020 08:05 INDICATION: Disorder of the bone, unspecified TECHNIQUE: AP, lateral and lateral swimmer's views of the thoracic spine were obtained. COMPARISON: 04/15/2020 and 04/06/2020 FINDINGS: There is no fracture, dislocation, or subluxation. The vertebral body heights, alignment, a nd intervertebral disc spaces are normal. The paravertebral soft tissues are unremarkable. Lesions of the T10 and T12 vertebral bodies described on the comparison MRI examination are not demonstrated. C holecystectomy clips are noted in the right upper quadrant. Also noted are surgical clips in the righ t axilla. IMPRESSION: 1. Unremarkable thoracic spine. Reviewed, dictated and finalized at location A. EAR POWERPLANT SUPERVISOR
--- NOTE | ~2020-04-22 | NM_ITS ---
EXAMINATION: NM bone scan whole body DATE: 04/22/2020 11:13 INDICATION: Disorder of bone, unspecified. Bone lesions indeterminate 4 metastatic disease on MRI estela ed 04/15/2020 TECHNIQUE: 26.4 mCi Tc-99m HDP was administered intravenously. Delayed whole-body scintigrams were o btained. COMPARISON: MRI dated 04/15/2020 FINDINGS: No abnormal increased uptake associated with the previously noted lesions at T10, T12 and at the post erior right iliac crest. Degenerative joint centered uptake at the right knee, medial compartment of the left knee and at the right first metatarsophalangeal joint. Minimal likely extravasated soft tiss ue activity related to injection at the left antecubital fossa. No other suspicious bone lesions. IMPRESSION: 1. No evident metastatic disease. Specifically no abnormal uptake associated with the 3 lesions ident ified on prior MRI which most likely represent atypical hemangiomas. Reviewed, dictated and finalized at location A. INE CLOTHING MAN IMPRESSION: 1. No evident metastatic disease. Specifically no abnormal uptake associated wi th the 3 lesions identified on prior MRI which most likely represent atypical h emangiomas.
--- NOTE | ~2020-04-22 | XR_ITS ---
EXAMINATION: XR pelvis 1-2V EXAM DATE: 04/22/2020 08:38 INDICATION: M89.9 - Disorder of bone, unspecified . TECHNIQUE: Pelvis frontal projection(s) obtained and reviewed. Comparison is made to prior examinatio n from 06/03/2005. FINDINGS: Hip joints are symmetric and unremarkable. No evidence of avascular necrosis. Sacrum, sacr oiliac joints, sacral arcuate lines are intact. There are no acute fractures or dislocations identifi ed. There is no subcutaneous gas. The soft tissue is unremarkable. There are no radiopaque foreig n bodies. IMPRESSION: 1. Unremarkable XR pelvis 1-2V exam. Reviewed, dictated and finalized at location B. LESOFT ANALYST
== END 2020-04-22 07:33 | disposition home or self-care (01) ==
PROVIDERS: PCP Internal Medicine; Visit Provider Internal Medicine
DX: M89.9 Disorder of bone, unspecified (principal)
CPT/HCPCS: 72072; 72170; 78306; A9561

== ENCOUNTER 2021-06-16 09:53 | Outpatient (CLI) | payer OTHER, SELFPAY ==
--- NOTE | 2021-06-16 15:13 | WPDPFTINT ---
PFT Procedure Performed PFT Procedure Performed Spirometry with Pre/Post Bronchodilator Plethysmography (Lung Vol) Diffusing Cap (DLCO) Flow Vol Loop PFT Interpretation Lung volumes were measured with the body plethysmography method. Lung volumes are unremarkable. Spirometry showed diminished expiratory flow rates and a diminished FEV1 to FVC ratio 60%, consistent with obstructive airway disease. Following administration of a bronchodilator, there was no significant increase in expiratory flow rates. Lung diffusion capacity is borderline normal at 78% predicted. The flow volume loop is consistent with obstructive airway disease. Impression: Mild obstructive airway disease with no response to bronchodilators on this testing.
== END 2021-06-16 09:54 | disposition home or self-care (01) ==
PROVIDERS: PCP Internal Medicine; Visit Provider Internal Medicine
DX: R05.9 Cough, unspecified (principal); R94.2 Abnormal results of pulmonary function studies
CPT/HCPCS: 94060; 94726; 94729

== ENCOUNTER 2021-06-16 11:04 | Outpatient (CLI) | payer OTHER, SELFPAY ==
--- NOTE | ~2021-06-16 | CT_ITS ---
EXAMINATION: CT chest high resolution w con INDICATION: Cough TECHNIQUE: Computed tomographic images of the chest were obtained after the administration of 75 cc o f Omnipaque 350 intravenous contrast. The dose-length product (DLP) was 157.10 mGy-cm. Automated expo sure control and iterative reconstruction technique were employed. COMPARISON: 04/06/2020 FINDINGS: There is unchanged mild scarring at the right lung apex and the anterolateral aspect of the right lung. No new airspace opacities are identified. There is no pleural effusion or pneumothorax. Calcified pulmonary nodules and calcified hilar lymph nodes are consistent with old granulomatous dis ease. No pathologically enlarged thoracic lymph nodes are identified. The heart size is normal. There is mild thoracic spondylosis. There are changes of right axillary lymph node dissection. The gallbla dder is surgically absent. Partially enhancing liver lesions are not significantly changed. IMPRESSION: 1. No CT correlate for the patient's symptoms. Reviewed, dictated and finalized at location F. BENDER
== END 2021-06-16 11:05 | disposition home or self-care (01) ==
LOC: ANHIMG 11:10
PROVIDERS: PCP Internal Medicine; Visit Provider Internal Medicine
DX: R05.9 Cough, unspecified (principal)
CPT/HCPCS: 71260; 94060; 94726; 94729; Q9967

== ENCOUNTER 2021-06-17 09:36 | Outpatient (CLI) | payer OTHER, SELFPAY ==
--- NOTE | ~2021-06-17 | XR_ITS ---
EXAMINATION: XR barium swallow modified EXAM DATE: 06/17/2021 10:14 INDICATION: R05 - Cough . TECHNIQUE: Modified barium esophagram was performed by speech pathologist with radiologist Dr. Ba Lopes present to administered fluoroscopy. Speech pathologist administered barium in varying consis tencies as per speech pathologist documentation. This was recorded on tape. There was total fluorosc opic time of 0.2 minutes. The DAP for this procedure was 0.16 Gycm2. A total of 1 images sent to [facility] from the exam. FINDINGS: Oral stage: Normal. Pharyngeal phase: Normal. Laryngeal penetration: None. Aspiration: None. Laryngeal sensitivity: Present. IMPRESSION: Normal modified esophagram exam. Please refer to speech pathologist findings and specifi c feeding recommendations. Reviewed, dictated and finalized at location A. AR REPAIR TECHNICIAN IMPRESSION: Normal modified esophagram exam. Please refer to speech pathologis t findings and specific feeding recommendations.
--- NOTE | 2021-06-17 11:42 | STOPEVAL ---
Thank you for referring Aleshia Henderson to [facility].? Attending Provider: Koko Lozano MD Assessment Status Evaluation Other History Hx Cancer Yes: s/p breast cancer with chemotherapy/radiation Evaluation Information Problem Diagnosis Cough Onset approximately 2 years ago Cause Respiratory illness Subjective Information Patient denies allergies but Query Text:As Reported By Patient/ states that a recent test Family revealed asthma and she will begin an inhaler this week. States a ENT evaluation without endoscopy revealed no significant issues. Diagnostic Tests X-Rays For This Problem No MRI For This Problem No Other Tests For This Problem Yes Prior Level of Function Prior Swallow Level Prior Intake Method Oral Prior Diet Regular (Level 7 Diet) Prior Liquid Consistency Thin (Level 0 Diet) Prior Cognition/Communication Prior Communication Level No Impairment Prior Cognitive Function Able to Function Independently Prior Ability to Handle Finances Independent Pain Assessment Timing of Pain Assessment Timing of Pain Assessment Assessment Self Report Self Report Pain Level 0 Pain Score Pain Score 0: Self Report Modified Barium Swallow Evaluation Consistency Mixed Consistency 5 mL Method of Presentation Spoon Oral Preparatory Symptoms None,Within Functional Limits Oral Phase Symptoms None,Within Functional Limits Pharyngeal Phase Symptoms None,Within Functional Limits Severity of Vallecular Residue None - 0% No Residue Severity of Pyriform Sinus Residue None - 0% No Residue 8 Point Laryngeal Penetration-Aspiration Material Does Not Enter Airway Scale Cervical/Esophageal Symptoms None,Within Functional Limits Pureed Consistency 5 mL Method of Presentation Spoon Oral Preparatory Symptoms None,Within Functional Limits Oral Phase Symptoms None,Within Functional Limits Pharyngeal Phase Symptoms None,Within Functional Limits Severity of Vallecular Residue None - 0% No Residue Severity of Pyriform Sinus Residue None - 0% No Residue 8 Point Laryngeal Penetration-Aspiration Material Does Not Enter Airway Scale Cervical/Esophageal Symptoms None,Within Functional Limits Pureed Consistency 3 mL Method of Presentation Spoon Oral Preparatory Symptoms None,Within Functional Limits Oral Phase Symptoms None,Within Functional Limits Pharyngeal Phase Symptoms None,Within Functional Limits Severity of Vallecular Residue None - 0% No Residue Severity of Pyriform Sinus Residue None - 0% No Residue 8 Point Laryngeal Penetration-Aspira
== END 2021-06-17 09:37 | disposition home or self-care (01) ==
LOC: ANHIMG 09:42
PROVIDERS: PCP Internal Medicine; Visit Provider Internal Medicine
DX: R05.9 Cough, unspecified (principal)
CPT/HCPCS: 92611

== ENCOUNTER 2021-06-19 16:31 | Outpatient (CLI) | payer OTHER, SELFPAY ==
--- NOTE | ~2021-06-19 | MR_ITS ---
EXAMINATION: MR lumbar spine wo con DATE: 06/19/2021 17:09 INDICATION: Low back pain. TECHNIQUE: Magnetic resonance imaging (MRI) of the lumbar spine was performed without intravenous con trast. Sequences included sagittal T2-weighted FSE, sagittal T2-weighted FS FSE, sagittal T1-weighted FSE, and axial T2-weighted FSE. COMPARISON: None FINDINGS: Bone alignment is normal. Vertebral body heights are normal. There is mildly decreased disc height at L5-S1. The distal spinal cord signal intensity is normal. The conus medullaris is at T12-L 1. The following disc levels are specifically discussed: L1-L2: The disc does not extend beyond the endplate margin. There is mild bilateral facet joint osteo arthritis. There is no neural foraminal stenosis. There is no central canal stenosis. L2-L3: The disc does not extend beyond the endplate margin. There is mild bilateral facet joint osteo arthritis. There is no neural foraminal stenosis. There is no central canal stenosis. L3-L4: The disc is mildly bulging. There is no facet joint osteoarthritis. There is mild bilateral ne ural foraminal stenosis. There is no central canal stenosis. L4-L5: The disc is mildly bulging. There is no facet joint osteoarthritis. There is mild bilateral ne ural foraminal stenosis. There is mild central canal stenosis. L5-S1: The disc is bulging and has an annular fissure. There is mild bilateral facet joint osteoarthr itis. There is mild left neural foraminal stenosis. There is mild central canal stenosis. IMPRESSION: 1. Mild lumbar spondylosis. Reviewed, dictated and finalized at location A. L CANOE INSPECTOR IMPRESSION: 1. Mild lumbar spondylosis.
== END 2021-06-19 16:32 | disposition home or self-care (01) ==
LOC: ANHIMG 16:36
PROVIDERS: PCP Internal Medicine; Visit Provider Internal Medicine
DX: M47.817 Spondylosis without myelopathy or radiculopathy, lumbosacral region (principal); M48.07 Spinal stenosis, lumbosacral region; Z85.3 Personal history of malignant neoplasm of breast; M47.27 Other spondylosis with radiculopathy, lumbosacral region
CPT/HCPCS: 72148

== ENCOUNTER 2021-08-25 00:33 | Day surgery (SDC) | payer OTHER, SELFPAY ==
[2021-08-18 12:41] VITALS: BMI 20.1
--- NOTE | 2021-08-25 11:22 | WPDANESEPPF ---
Anes - Initial Pre Proc Eval Procedure: Operation Date: 08/25/21 13:00 Proposed Procedures p Esophagogastroduodenoscopy & Screening Colonoscopy - Mian Morgan MD Date/Time: 08/25/21 11:22 Surgeon: Mian Morgan MD Pre Op Diagnosis: GERD, neoplasm screening Patient Data Age: 51 Gender: F Height: 1.73 m Weight: 60 kg Allergies Allergy/AdvReac Type Severity Reaction Status Date / Time No Known Allergies Allergy Verified 08/25/21 11:50 Home Medications Medication Instructions Recorded Confirmed Type ascorbic acid (vitamin C) 1,000 mg 1 g PO DAILY 07/15/20 08/25/21 History tablet omega-3 fatty acids 1,000 mg 1,000 mg PO DAILY 07/15/20 08/25/21 History capsule albuterol sulfate 90 mcg/actuation See Rx Instructions .ROUTE 08/15/20 08/25/21 Rx breath activated powder inhaler .COMPLEX #1 ea melatonin 10 mg tablet 10 mg PO QHS 10/15/20 08/25/21 History levothyroxine 75 mcg tablet See Rx Instructions .ROUTE 05/14/21 08/25/21 Rx .COMPLEX #90 tablet zinc 50 mg tablet 50 mg PO DAILY 05/26/21 08/25/21 History Patient hx anesthesia problems: none Family hx anesthesia problems: none Results Review: All pre-operative results and documents have been reviewed as part of the pre-operative evaluation. [facility] Past Medical History Medical History Adult BMI 19-24 kg/sq m Anxiety BMI 20.0-20.9, adult BMI 21.0-21.9, adult Bone lesion Breast CA Cervicalgia Colon cancer screening Cough Cough variant asthma Diarrhea Discoloration of skin Elevated parathyroid hormone Encounter for preventive health examination Encounter for routine adult health examination without abnormal findings Encounter to establish care Exposure to COVID-19 virus GERD (gastroesophageal reflux disease) Heart palpitations History of chemotherapy Hot flashes Hx of breast cancer Hypersomnolence Hypothyroid Hypothyroidism (acquired) Insomnia Liver mass Mild reactive airways disease On fdc drug therapy Post menopausal syndrome SVT (supraventricular tachycardia) Surgical History Surgical History H/O right breast biopsy H/O umbilical hernia repair History of repair of anterior cruciate ligament of left knee many years ago Hx of section S/P cholecystectomy Status post bunionectomy Family History Family History Grandparent Cancer Social History Social History Smoking status: Never smoker Alcohol intake: current Alcohol use details: socially Substance use: never Substance use type: does not use Living arrangements: with family Additional living arrangements comments: lives with daughter Gender identity (if verbalized by the patient): Female Spiritual care concerns: No Anes - Eval Final PreProcedure Day of Procedure 08/25/21 11:22 Patient weight: normal Heart: regular rate and rhythm Lungs: clear to auscultation and normal air movement Airway: Mallampati scale class II Neurological: alert and oriented Last oral intake: >/= 8 hours ASA classification: II Emergent: no Anesthetic plan: proceed Anesthesia type and monitoring: general GIVS and standard monitoring Results Review: All pre-operative results and documents have been reviewed as part of the pre-operative evaluation. Informed Consent: The patient's anesthetic plan and its attendant risks and benefits were discussed with the patient/family/POA. Questions were solicited and answers provided to the satisfaction of the patient/family/POA.
[2021-08-25 11:51] VITALS: BP 100/71; PULSE 119; RESP 16; TEMP 36.2; O2SAT 96
[2021-08-25] MEDS: LACTATED RINGERS 1,000 ML 150 ML IV CONT (11:59)
--- NOTE | 2021-08-25 12:13 | PM.HPGS ---
History of Present Illness History of Present Illness Consent: Risks, benefits, and alternatives have been discussed and questions answered. Patient agrees to proceed with procedure. Chief complaint: GERD, neoplasm screening Narrative: Aleshia Henderson is a 51 year old female referred for EGD because of persistent reflux symptoms. She is also referred for colon cancer screening Review of Systems Review of Systems: All systems reviewed & are unremarkable except as noted in HPI and below PMFSH Past Medical History Medical History Adult BMI 19-24 kg/sq m Anxiety BMI 20.0-20.9, adult BMI 21.0-21.9, adult Bone lesion Breast CA Cervicalgia Colon cancer screening Cough Cough variant asthma Diarrhea Discoloration of skin Elevated parathyroid hormone Encounter for preventive health examination Encounter for routine adult health examination without abnormal findings Encounter to establish care Exposure to COVID-19 virus GERD (gastroesophageal reflux disease) Heart palpitations History of chemotherapy Hot flashes Hx of breast cancer Hypersomnolence Hypothyroid Hypothyroidism (acquired) Insomnia Liver mass Mild reactive airways disease On senior care drug therapy Post menopausal syndrome SVT (supraventricular tachycardia) Surgical History Surgical History H/O right breast biopsy H/O umbilical hernia repair History of repair of anterior cruciate ligament of left knee many years ago Hx of section S/P cholecystectomy Status post bunionectomy Family History Family History Grandparent Cancer Social History Social History Smoking status: Never smoker Alcohol intake: current Alcohol use details: socially Substance use: never Substance use type: does not use Living arrangements: with family Additional living arrangements comments: lives with daughter Gender identity (if verbalized by the patient): Female Spiritual care concerns: No Meds Home Medications and Allergies Home Medications Medication Instructions Recorded Confirmed Type ascorbic acid (vitamin C) 1,000 mg 1 g PO DAILY 07/15/20 08/25/21 History tablet omega-3 fatty acids 1,000 mg 1,000 mg PO DAILY 07/15/20 08/25/21 History capsule albuterol sulfate 90 mcg/actuation See Rx Instructions .ROUTE 08/15/20 08/25/21 Rx breath activated powder inhaler .COMPLEX #1 ea melatonin 10 mg tablet 10 mg PO QHS 10/15/20 08/25/21 History levothyroxine 75 mcg tablet See Rx Instructions .ROUTE 05/14/21 08/25/21 Rx .COMPLEX #90 tablet zinc 50 mg tablet 50 mg PO DAILY 05/26/21 08/25/21 History Allergies Allergy/AdvReac Type Severity Reaction Status Date / Time No Known Allergies Allergy Verified 08/25/21 11:50 Vital Signs Vital Signs - 24 hr 08/25/21 11:51 Temperature 36.2 C L Pulse Rate 119 H Respiratory Rate 16 Blood Pressure 100/71 Pulse Oximetry 96 Exam Const: General: alert Orientation/consciousness: patient oriented x3 Resp: Auscultation: clear to auscultation bilaterally Cardio: Rhythm: regular rhythm GI: GI Palp: Yes Soft to palpation and No Tenderness to palpation present (GI) Neuro: General: patient oriented x3 Assessment and Plan Assessment and plan (1) GERD (gastroesophageal reflux disease): Qualifiers: Esophagitis presence: esophagitis presence not specified Qualified Code(s): K21.9 - Gastro-esophageal reflux disease without esophagitis Code(s): K21.9 - Gastro-esophageal reflux disease without esophagitis Status: Acute Assessment and Plan: EGD with possible biopsy or dilatation or cautery. (2) Colon cancer screening: Code(s): Z12.11 - Encounter for screening for malignant neoplasm of colon Status: Acute Assessmen
--- NOTE | 2021-08-25 12:36 | SUR.OPER ---
EGD: [id number] COLON: [id number]
[2021-08-25 12:51] VITALS: BP 94/47; PULSE 96; RESP 22; O2SAT 100
[2021-08-25 13:01] VITALS: BP 108/71; PULSE 85; RESP 15; O2SAT 98
[2021-08-25 13:11] VITALS: BP 119/62; PULSE 80; RESP 20; O2SAT 100
== END 2021-08-25 13:15 | disposition home or self-care (01) ==
PROVIDERS: PCP Internal Medicine; Visit Provider Internal Medicine Gastroenterology
PROC: 0DJ08ZZ Inspection of Upper Intestinal Tract, Via Natural or Artificial Opening Endoscopic (ICD-10-PCS; CPT 43235; principal; 2021-08-25 13:00)
DX: Z12.11 Encounter for screening for malignant neoplasm of colon (principal); K21.9 Gastro-esophageal reflux disease without esophagitis; F41.9 Anxiety disorder, unspecified; Z85.3 Personal history of malignant neoplasm of breast; M54.2 Cervicalgia; R00.2 Palpitations; Z92.21 Personal history of antineoplastic chemotherapy; Z90.49 Acquired absence of other specified parts of digestive tract; I47.1 Supraventricular tachycardia; Z79.51 Long term (current) use of inhaled steroids
CPT/HCPCS: 45378; 43239; 87081; 88305; J2704; J7120

== ENCOUNTER 2021-12-09 11:17 | Outpatient (CLI) | payer OTHER, SELFPAY ==
[2021-12-09 11:38] LABS: Basophils Percent Auto 1.1 % (0.2-1.2); Eosinophils Percent Auto 1.5 % (0-4.4); Hematocrit 35.5 % (37.0-47.0); Hemoglobin 11.8 g/dL (12.0-15.0); Immature Granulocyte Absolute 0.02 K/mm3 (0.00-0.031); Immature Granulocyte Percent A 0.3 % (0-0.5); Lymphocytes Percent Auto 32.6 % (18.3-44.2); Mean Corpuscular HGB Conc 33.2 g/dl (32-36); Mean Corpuscular Hemoglobin 29.1 pg (26-34); Mean Corpuscular Volume 87.7 fl (80-100); Mean Platelet Volume 11.4 fl (7.4-10.4); Monocytes Percent Auto 8.7 % (2.6-8.5); Neutrophils Absolute Auto 3.4 K/mm3 (1.3-6.7); Neutrophils Percent Auto 55.8 % (45.5-73.1); Platelet Count Result 192 k/mm3 (150-375); Red Blood Count 4.05 M/mm3 (4.2-5.4); Red Cell Distribution Width 13.3 % (11.5-14.5); White Blood Count 6.1 K/mm3 (4.5-10.0)
[2021-12-09 11:39] LABS: Basophils Absolute Auto 0.1 K/mm3 (0.0-0.1); Eosinophils Absolute Auto 0.1 K/mm3 (0-0.3); Lymphocytes Absolute Auto 1.99 K/mm3 (0.9-3.2); Monocytes Absolute Auto 0.5 K/mm3 (0.1-0.6)
[2021-12-09 12:01] LABS: CRP < 0.5 mg/dL (<1.0); Uric Acid 2.9 mg/dL (2.5-7.5)
[2021-12-09 12:03] LABS: Rheumatoid Factor < 8.6 IU/ML (<12)
[2021-12-09 12:47] LABS: Erythrocyte Sedimentation Rate 10 mm/hr (0-20)
== END 2021-12-09 11:18 | disposition home or self-care (01) ==
LOC: ANHLAB 11:19
PROVIDERS: PCP Internal Medicine; Visit Provider Nurse Practitioner
DX: M25.561 Pain in right knee (principal); M25.562 Pain in left knee
CPT/HCPCS: 36415; 84550; 85025; 85652; 86038; 86140; 86430

== ENCOUNTER 2021-12-24 09:28 | Outpatient (CLI) | payer OTHER, SELFPAY ==
--- NOTE | ~2021-12-24 | MR_ITS ---
EXAMINATION: MR abdomen wo/w con INDICATION: Hepatomegaly not elsewhere classified, liver masses TECHNIQUE: Coronal SSFSE ARC, WATER:coronal LAVA-FLEX, Coronal 2D FIESTA FatSat, Axial SSFSE BH ARC, Axial 3D DualEcho BH, Axial SSFSE-IR, Axial DWI b=500, Axial 2D FIESTA FatSat, pre and dynamic postco ntrast Axial LAVA ARC, postcontrast Coronal In and Opposed phase LAVA FLEX COMPARISON: 04/15/2020 CONTRAST: Multihance, 11 cc FINDINGS: Again seen are at least nine stable liver masses which are T1 hypointense and T2 hyperinten se. The masses all demonstrate enhancement with variable kinetics. The larger masses demonstrate inte rrupted peripheral nodular enhancement with gradual centripetal filling. None demonstrate suspicious interval change. The gallbladder is surgically absent. The spleen, pancreas, and adrenal glands are n ormal. There are no pathologically enlarged abdominal lymph nodes. There are no dilated loops of medhat l. The kidneys are unremarkable. There are stable lesions with increased T2 signal intensity in the T 10 and T12 vertebral bodies as well as the right ilium, likely atypical hemangiomas given the interva l stability. IMPRESSION: 1. Multiple stable liver masses, consistent with benign masses. Reviewed, dictated and finalized at location B.
--- NOTE | ~2021-12-24 | US_ITS ---
EXAMINATION: US abdomen limited DATE: 12/24/2021 11:15 INDICATION: Hepatomegaly not elsewhere classified TECHNIQUE: Multiple grayscale and Doppler ultrasound images of the abdomen were obtained. COMPARISON: MRI from today FINDINGS: The head, body, and tail of the pancreas are normal. Multiple liver masses are identified w hich measure up to 3.7 cm and are more completely described on MRI from today, most consistent with h emangiomas. No surface nodularity. Normal hepatopetal flow in the main portal vein. The gallbladder i s surgically absent. The normal common bile duct measures 5 mm. IMPRESSION: 1. Multiple liver masses, more completely described on MRI from today, consistent with benign masses. Reviewed, dictated and finalized at location B. IMPRESSION: 1. Multiple liver masses, more completely described on MRI from today, consiste nt with benign masses.
[2021-12-24 10:05] LABS: Estimated Glomerular Filt Rate > 60
== END 2021-12-24 09:29 | disposition home or self-care (01) ==
PROVIDERS: PCP Internal Medicine; Visit Provider Internal Medicine
DX: R16.0 Hepatomegaly, not elsewhere classified (principal); R10.11 Right upper quadrant pain; K76.9 Liver disease, unspecified
CPT/HCPCS: 74183; 76705; A9577

== ENCOUNTER 2021-12-27 09:36 | Outpatient (CLI) | payer OTHER, SELFPAY ==
--- NOTE | ~2021-12-27 | MR_ITS ---
EXAMINATION: MR knee RT wo con DATE: 12/27/2021 10:46 INDICATION: Right knee pain TECHNIQUE: Magnetic resonance imaging (MRI) of the right knee was performed without intravenous contr ast. Sequences included coronal PD-weighted FSE, coronal PD-weighted FS FSE, sagittal T2-weighted FS E, sagittal PD-weighted FS FSE and axial PD weighted fat saturated FSE. COMPARISON: Right knee radiographs dated 03/10/2020 FINDINGS: Medial compartment: Longitudinal vertical tear which extends to the inferior articular surface and the peripheral third o f the posterior body and posterior horn of the medial meniscus. Articular cartilage is normal. Lateral compartment: Lateral meniscus is normal. Articular cartilage is normal. Patellofemoral compartment: Partial-thickness chondral fissure involving <50% the cartilage thickness at the medial patellar face t cartilage at the trochlea and lateral patellar facet are normal. Ligaments and tendons: Anterior and posterior cruciate ligaments are normal. The medial collateral ligament and fibular pravin ateral ligament complex are normal. Mild distal quadriceps tendinopathy. Patellar tendon is normal. T he visualized medial and lateral hamstring tendons as well as the iliotibial band are normal. Fluid: Physiologic amount of fluid in the joint space. No loose osteochondral bodies identified. Chester's cys t measuring 5.0 x 2.5 x 1.3 cm . Osseous/other: Normal marrow signal. No fracture or abnormal marrow replacing process. IMPRESSION: 1. Longitudinal vertical tear in the peripheral third of the posterior body and posterior horn of the medial meniscus. 2. Small region of moderate grade chondromalacia along the medial patellar facet. 3. Mild distal quadriceps tendinopathy. 4. Moderate-sized Chester's cyst. Reviewed, dictated and finalized at location B. IMPRESSION: 1. Longitudinal vertical tear in the peripheral third of the posterior body and posterior horn of the medial meniscus. 2. Small region of moderate grade chondromalacia along the medial patellar face t. 3. Mild distal quadriceps tendinopathy. 4. Moderate-sized Chester's cyst.
== END 2021-12-27 09:37 | disposition home or self-care (01) ==
LOC: ANHIMG 09:37
PROVIDERS: PCP Internal Medicine; Visit Provider Orthopaedic Surgery
DX: M71.21 Synovial cyst of popliteal space [Baker], right knee (principal); S83.241A Other tear of medial meniscus, current injury, right knee, initial encounter; X58.XXXA Exposure to other specified factors, initial encounter
CPT/HCPCS: 73721

== ENCOUNTER 2022-01-22 10:08 | Day surgery (SDC) | payer OTHER, SELFPAY ==
[2022-01-12 10:20] VITALS: BMI 19.4
--- NOTE | 2022-01-22 00:13 | PM.IMHP ---
H&P: HPI History of Present Illness Date/Time: 01/22/22 00:13 Chief Complaint: Vaginal bleeding Narrative: 51 y/o who has had another episode of vaginal bleeding. She has had breast cancer and has a history of tamoxifen use. She had a D&C in 2019 because of bleeding, and the pathology was benign. However, she has had more bleeding recently. Ultrasound exam shows an endometrial complex that is 2.4 mm thick. Myometrium and adnexa are unremarkable. However, because of her history and the recurrent nature of the bleeding, we have opted to go ahead with another hysteroscopy / D&C. Review of Systems Review of Systems: All systems reviewed & are unremarkable except as noted in HPI and below PMFSH Past Medical History Medical History Adult BMI 19-24 kg/sq m Anxiety BMI 20.0-20.9, adult BMI 21.0-21.9, adult Bone lesion BPPV (benign paroxysmal positional vertigo) Breast CA Cervicalgia Colon cancer screening Complex tear of medial meniscus of right knee Cough Cough variant asthma Diarrhea Discoloration of skin Elevated LDL cholesterol level Elevated parathyroid hormone Encounter for preventive health examination Encounter for routine adult health examination without abnormal findings Encounter to establish care Exposure to COVID-19 virus GERD (gastroesophageal reflux disease) Heart palpitations History of chemotherapy Hot flashes Hx of breast cancer Hypersomnolence Hypothyroid Hypothyroidism (acquired) Insomnia Liver mass Mild reactive airways disease On group home drug therapy Post menopausal syndrome RUQ abdominal pain Screening for heart disease SVT (supraventricular tachycardia) Surgical History Surgical History H/O right breast biopsy H/O umbilical hernia repair History of D&C History of repair of anterior cruciate ligament of left knee many years ago Hx of section S/P cholecystectomy Status post bunionectomy Family History Family History Grandparent Cancer Social History Social History Smoking status: Never smoker Second hand tobacco smoke exposure: No Alcohol intake: current Drinks per week: 7 Alcohol use details: socially Substance use: never Substance use type: does not use Additional living arrangements comments: lives with daughter Gender identity (if verbalized by the patient): Female Spiritual care concerns: No Meds Home Medications and Allergies Home Medications Medication Instructions Recorded Confirmed Type ascorbic acid (vitamin C) 1,000 mg 1 g PO DAILY 07/15/20 01/13/22 History tablet omega-3 fatty acids 1,000 mg 1,000 mg PO DAILY 07/15/20 01/13/22 History capsule (Fish Oil Concentrate) albuterol sulfate 90 mcg/actuation See Rx Instructions .Route 08/15/20 01/13/22 Rx breath activated powder inhaler .COMPLEX #1 ea (ProAir RespiClick) melatonin 10 mg tablet 10 mg PO QHS 10/15/20 01/13/22 History levothyroxine 75 mcg tablet See Rx Instructions .Route 05/14/21 01/13/22 Rx .COMPLEX #90 tabs zinc 50 mg tablet 50 mg PO DAILY 05/26/21 01/13/22 History celecoxib 200 mg capsule (Celebrex) 200 mg PO DAILY #30 caps 12/31/21 01/13/22 Rx clonazepam 1 mg tablet 1 mg PO DAILY #30 tabs 01/13/22 01/13/22 Rx Allergies Allergy/AdvReac Type Severity Reaction Status Date / Time No Known Allergies Allergy Verified 01/13/22 08:28 Exam Const: Orientation/consciousness: patient oriented x3 Other: Well-developed, well-nourished female in no acute distress. Neck: Thyroid: thyroid normal Lymphatic: no lymphadenopathy noted (in neck, axilla or inguinal nodes) Resp: Effort & Inspection: normal respiratory effort Auscultation: clear to auscultation bilaterally Cardio: Rate: regular rate Rhythm: regular rhythm Heart
--- NOTE | 2022-01-22 09:16 | WPDANESEPPF ---
Anes - Initial Pre Proc Eval Procedure: Operation Date: 01/22/22 12:00 Proposed Procedures p Hysteroscopy w/Dilation and Curettage - Ye Tobar MD Date/Time: 01/22/22 09:16 Surgeon: Ye Tobar MD Pre Op Diagnosis: Post Menopausal Bleeding and History of Breast CA Patient Data Age: 51 Gender: F Height: 1.73 m Weight: 58.06 kg Allergies Allergy/AdvReac Type Severity Reaction Status Date / Time No Known Allergies Allergy Verified 01/22/22 10:49 Home Medications Medication Instructions Recorded Confirmed Type ascorbic acid (vitamin C) 1,000 mg 1 g PO DAILY 07/15/20 01/22/22 History tablet omega-3 fatty acids 1,000 mg 1,000 mg PO DAILY 07/15/20 01/22/22 History capsule (Fish Oil Concentrate) albuterol sulfate 90 mcg/actuation See Rx Instructions .Route 08/15/20 01/22/22 Rx breath activated powder inhaler .COMPLEX #1 ea (ProAir RespiClick) melatonin 10 mg tablet 10 mg PO QHS 10/15/20 01/22/22 History levothyroxine 75 mcg tablet See Rx Instructions .Route 05/14/21 01/22/22 Rx .COMPLEX #90 tabs zinc 50 mg tablet 50 mg PO DAILY 05/26/21 01/22/22 History celecoxib 200 mg capsule (Celebrex) 200 mg PO DAILY #30 caps 12/31/21 01/22/22 Rx clonazepam 1 mg tablet 1 mg PO DAILY #30 tabs 01/13/22 01/22/22 Rx Patient hx anesthesia problems: none Family hx anesthesia problems: none Results Review: All pre-operative results and documents have been reviewed as part of the pre-operative evaluation. [facility] Past Medical History Medical History Adult BMI 19-24 kg/sq m Anxiety BMI 20.0-20.9, adult BMI 21.0-21.9, adult Bone lesion BPPV (benign paroxysmal positional vertigo) Breast CA Cervicalgia Colon cancer screening Complex tear of medial meniscus of right knee Cough Cough variant asthma Diarrhea Discoloration of skin Elevated LDL cholesterol level Elevated parathyroid hormone Encounter for preventive health examination Encounter for routine adult health examination without abnormal findings Encounter to establish care Exposure to COVID-19 virus GERD (gastroesophageal reflux disease) Heart palpitations History of chemotherapy Hot flashes Hx of breast cancer Hypersomnolence Hypothyroid Hypothyroidism (acquired) Insomnia Liver mass Mild reactive airways disease On [employer] drug therapy Post menopausal syndrome RUQ abdominal pain Screening for heart disease SVT (supraventricular tachycardia) Surgical History Surgical History H/O right breast biopsy H/O umbilical hernia repair History of D&C History of repair of anterior cruciate ligament of left knee many years ago Hx of section S/P cholecystectomy Status post bunionectomy Family History Family History Grandparent Cancer Social History Social History Smoking status: Never smoker Second hand tobacco smoke exposure: No Alcohol intake: current Drinks per week: 7 Alcohol use details: socially Substance use: never Substance use type: does not use Living arrangements: with family Additional living arrangements comments: lives with daughter Gender identity (if verbalized by the patient): Female Spiritual care concerns: No Anes - Eval Final PreProcedure Day of Procedure 01/22/22 09:16 Patient weight: normal Heart: regular rate and rhythm Lungs: clear to auscultation Airway: Mallampati scale class II Neurological: alert and oriented Last oral intake: >/= 8 hours ASA classification: II Emergent: no Anesthetic plan: proceed Anesthesia type and monitoring: general GIVS and standard monitoring Results Review: All pre-operative results and documents have been reviewed as part of the pre-operative evaluation. Informed Consent: The patient's anesthetic plan and its
[2022-01-22 10:46] VITALS: BMI 19.1
[2022-01-22 10:53] VITALS: BP 105/68; PULSE 77; RESP 16; TEMP 36.5; O2SAT 100
[2022-01-22] MEDS: LACTATED RINGERS 1,000 ML 30 ML IV CONT ×2 (11:20→13:09)
[2022-01-22] MEDS: ACETAMINOPHEN 500 MG TABLET 1000 MG PO (11:23)
--- NOTE | 2022-01-22 12:34 | WPDHPUPDATE1 ---
History and Physical Update Update Date/Time: 01/22/22 12:34 History and Physical has been reviewed, including an updated exam of the patient. There are NO changes in the patient's condition. Risks, benefits, and alternatives have been discussed and questions answered. Patient agrees to proceed with procedure.
[2022-01-22] MEDS: LIDOCAINE HCL 1% LOCAL INJ 20 ML VIAL 10 ML INFILTRATE (13:00)
--- NOTE | 2022-01-22 13:06 | W.PM.PROC2 ---
Procedure Note - Detailed Date of Procedure 01/22/22 Pre-op Diagnosis Post Menopausal Bleeding Post-op Diagnosis Same Procedure Performed Hysteroscopy Dilation and sharp curettage Surgeon Ye Tobar MD Anesthesia MAC and Local (1% lidocaine) Findings Small endometrial mass suggestive of a polyp. Otherwise, atrophic endometrium. Both tubal ostia seen. Description of Procedure The patient was taken to the operating room where she was prepared and draped in the usual sterile fashion in the dorsal lithotomy position. The bladder was drained with a red rubber catheter. A sterile speculum was placed into the vagina. The anterior lip of the cervix was grasped with single-tooth tenaculum. Ten mL of 1% lidocaine was administered in a paracervical block. The cervix was then gently dilated using Hegar dilators until an 8 mm dilator could be passed. Hysteroscopy was performed using sterile saline as a distention medium. Findings are as noted above. Sharp curettage was then performed, and endometrial curettings were collected on a Telfa pad and passed off to be sent to pathology. Hemostasis was excellent. Sponge, lap, needle and instrument counts were correct. The patient was awakened and taken to the recovery room in stable condition. I was present and scrubbed through the entire procedure. Estimated Blood Loss 5 Drains No Packing No Pathology Yes (Endometrial curettings) Complications None Condition Stable Disposition PACU
[2022-01-22 13:09] VITALS: BP 98/61; PULSE 65; RESP 16; TEMP 36.7; O2SAT 98
[2022-01-22 13:19] VITALS: BP 90/50; PULSE 66; RESP 18; O2SAT 99
--- NOTE | 2022-01-22 13:22 | WPDANESPN ---
Anes - Prog Note Post-Op Date/Time: 01/22/22 13:22 Cardiovascular status: normal Respiratory status: normal Airway patency: baseline Mental status: baseline Post-Op hydration status: normal Vital Signs: Last Vital Signs Temp 36.7 C 01/22/22 13:09 Pulse 66 01/22/22 13:19 Resp 18 01/22/22 13:19 BP 90/50 L 01/22/22 13:19 Pulse Ox 99 01/22/22 13:19 O2 Del Method Room Air 01/22/22 13:19 Pain Score (VAS): 2 I/O: Intake & Output 01/21/22 01/22/22 01/22/22 23:59 07:59 15:59 Output Total 50 Balance -50 Post-procedural complaints: none Patient Feedback: Patient satisfied with anesthetic care. Other Findings: Patient vital signs back to baseline. Patient denies nausea and vomiting. Patient's pain under control. Patient OK for discharge.
[2022-01-22 13:35] VITALS: BP 98/55; PULSE 67; RESP 18; O2SAT 99
== END 2022-01-22 13:55 | disposition home or self-care (01) ==
PROVIDERS: PCP Internal Medicine; Visit Provider Obstetrics & Gynecology
PROC: 0U5B8ZZ Destruction of Endometrium, Via Natural or Artificial Opening Endoscopic (ICD-10-PCS; CPT 58563; principal; 2022-01-22 12:00)
DX: N93.8 Other specified abnormal uterine and vaginal bleeding (principal)
CPT/HCPCS: 58558

== ENCOUNTER 2022-01-22 13:00 | Outpatient (NON) | payer OTHER, SELFPAY | END 2022-01-22 13:01 | disposition home or self-care (01) | PROVIDERS: PCP Internal Medicine; Visit Provider Obstetrics & Gynecology | DX: N95.0 Postmenopausal bleeding (principal) | CPT/HCPCS: 88305 ==

== ENCOUNTER 2022-03-13 08:01 | Outpatient (CLI) | payer OTHER, SELFPAY ==
[2022-03-13 09:28] LABS: Appearance Urine Clear (Clear); Bilirubin Urine Negative (Negative); Blood Urine Negative (Negative); Color Urine Yellow (Yellow); Glucose Urine UA Negative (Negative); Ketones Urine Negative (Negative); Leukocyte Esterase Ur Negative LEU/UL (Negative); Nitrate Urine Negative (Negative); Protein Urine Negative (Negative); Specific Grav Ur 1.015 (1.001-1.035); Urobilinogen Urine 0.2 mg/dL (<2.0)
[2022-03-13 09:40] LABS: Add Urine Microscopic? NO
== END 2022-03-13 08:02 | disposition home or self-care (01) ==
PROVIDERS: PCP Internal Medicine; Visit Provider Internal Medicine
DX: R30.0 Dysuria (principal)
CPT/HCPCS: 81003

== ENCOUNTER 2022-05-04 15:26 | Outpatient (CLI) | payer OTHER, SELFPAY ==
[2022-05-07 12:13] LABS: Histone Antibody <1.0 U (<1.0)
[2022-05-12 18:30] LABS: Coccidioides Ab to F Ag (IgG) NEGATIVE; Coccidioides Ab to TP Ag (IgM) NEGATIVE
== END 2022-05-04 15:27 | disposition home or self-care (01) ==
PROVIDERS: PCP Internal Medicine; Visit Provider Internal Medicine
DX: R05.9 Cough, unspecified (principal); Z78.9 Other specified health status
CPT/HCPCS: 36415; 83516; 86635

== ENCOUNTER → 2023-01-11 07:43 | Outpatient (CLI) | payer OTHER, SELFPAY ==
--- NOTE | ~2023-01-11 | US_ITS ---
Limited Abdominal Sonogram: Real-time sonographic imaging of the right upper quadrant was performed. Clinical History: Gastroenteritis Findings: The liver appears normal with no evidence of bile duct dilatation. There is a 1.5 cm hyper echoic lesion in the left hepatic lobe, most likely hemangioma. There is a 5.0 cm hyperechoic mass in the right hepatic lobe, also most likely hemangioma. Main portal vein demonstrates normal direction of flow. The gallbladder is well distended, and appears normal with no evidence of gallstone or wall thickening. The common bile duct measures 5 mm. The visualized pancreas, aorta, and IVC are unremark able. Impression: Hyperechoic liver lesions, as detailed above, consistent with hemangiomas. These were also consistent with hemangiomas on prior MRI of the abdomen dated 12/24/2021. Reviewed, dictated and finalized at [facility]. Impression: Hyperechoic liver lesions, as detailed above, consistent with hemangiomas. Thes e were also consistent with hemangiomas on prior MRI of the abdomen dated 022.
== END ==
PROVIDERS: PCP Internal Medicine; Visit Provider Internal Medicine
DX: K52.9 Noninfective gastroenteritis and colitis, unspecified (principal); K76.89 Other specified diseases of liver
CPT/HCPCS: 76705

== ENCOUNTER 2023-01-11 08:28 | Day surgery (SDC) | payer OTHER, SELFPAY ==
[2023-01-04 09:29] VITALS: BMI 18.8
--- NOTE | 2023-01-08 16:53 | PM.HPGS ---
History of Present Illness History of Present Illness Consent: Risks, benefits, and alternatives have been discussed and questions answered. Patient agrees to proceed with procedure. Chief complaint: Diarrhea Narrative: Aleshia Henderson is a 52 year old female With chronic diarrhea beginning in September. She had stool studies done that were negative for any infectious pathogen including C difficile. She has not had blood in her stools. She denies abdominal pain. this started after a trip to [place] several months ago. Review of Systems Review of Systems: All systems reviewed & are unremarkable except as noted in HPI and below PMFSH Past Medical History Medical History Adult BMI 19-24 kg/sq m Adult BMI <19 kg/sq m Anxiety Asthma BMI 20.0-20.9, adult BMI 21.0-21.9, adult Bone lesion BPPV (benign paroxysmal positional vertigo) Breast CA Cervicalgia Colon cancer screening Complex tear of medial meniscus of right knee Cough Cough variant asthma Diarrhea Discoloration of skin Elevated LDL cholesterol level Elevated parathyroid hormone Encounter for preventive health examination Encounter for routine adult health examination without abnormal findings Encounter to establish care Exposure to COVID-19 virus GERD (gastroesophageal reflux disease) Heart palpitations History of chemotherapy Hot flashes Hx of breast cancer Hypersomnolence Hypothyroid Hypothyroidism (acquired) Insomnia Liver mass Mild reactive airways disease On prison drug therapy Post menopausal syndrome RUQ abdominal pain Screening for heart disease SVT (supraventricular tachycardia) Surgical History Surgical History H/O right breast biopsy H/O umbilical hernia repair History of D&C History of repair of anterior cruciate ligament of left knee many years ago Hx of section S/P cholecystectomy Status post bunionectomy Family History Family History Grandparent Cancer Social History Social History Smoking status: Never smoker Second hand tobacco smoke exposure: No Alcohol intake: current Drinks per week: 7 Alcohol use details: socially Substance use: never Substance use type: does not use Lack of Transportation: No Lack of Food: Never True Current Housing: I Have Housing Concerned About Future Housing: No Difficulty Paying Gas/Electric Bills: No Difficulty Paying for Meds: No Currently Unemployed: No Education: Master's Degree or Higher Difficulty w/ Childcare or Family Care: No Living arrangements: with family Additional living arrangements comments: lives with daughter Gender identity (if verbalized by the patient): Female Spiritual care concerns: No Meds Home Medications and Allergies Home Medications Medication Instructions Recorded Confirmed Type zinc 50 mg tablet 50 mg PO PRN PRN immunity support 05/26/21 01/11/23 History albuterol sulfate 90 mcg/actuation 1 puff inhalation Q4H PRN 03/06/22 01/11/23 Rx aerosol inhaler shortness of breath or wheezing #6.7 grams ascorbic acid (vitamin C) 1,000 mg 1 g PO DAILY 08/25/22 01/11/23 History tablet clonazepam 1 mg tablet 1 mg PO DAILY #30 tabs 10/19/22 01/11/23 Rx azelastine 137 mcg (0.1 %) nasal 1 spray intranasal Q12H #30 mL 12/15/22 01/11/23 Rx spray aerosol valacyclovir 1 gram tablet 500 mg PO DAILY 01/04/23 01/11/23 History (Valtrex) levothyroxine 75 mcg tablet See Rx Instructions .Route 01/06/23 01/11/23 Rx .COMPLEX #90 tabs Allergies Allergy/AdvReac Type Severity Reaction Status Date / Time No Known Allergies Allergy Verified 01/04/23 09:17 Exam Const: General: alert Orientation/consciousness: patient oriented x3 Resp: Auscultation: clear to auscultation bilaterally Cardio:
--- NOTE | 2023-01-11 06:58 | WPDANESEPPF ---
Anes - Initial Pre Proc Eval Procedure: Operation Date: 01/11/23 10:30 Proposed Procedures p Diagnostic Colonoscopy - Mian Morgan MD Date/Time: 01/11/23 06:58 Surgeon: Mian Morgan MD Pre Op Diagnosis: Diarrhea Patient Data Age: 52 Gender: F Height: 1.74 m Weight: 57 kg Allergies Allergy/AdvReac Type Severity Reaction Status Date / Time No Known Allergies Allergy Verified 01/04/23 09:17 Home Medications Medication Instructions Recorded Confirmed Type zinc 50 mg tablet 50 mg PO PRN PRN immunity support 05/26/21 01/11/23 History albuterol sulfate 90 mcg/actuation 1 puff inhalation Q4H PRN 03/06/22 01/11/23 Rx aerosol inhaler shortness of breath or wheezing #6.7 grams ascorbic acid (vitamin C) 1,000 mg 1 g PO DAILY 08/25/22 01/11/23 History tablet clonazepam 1 mg tablet 1 mg PO DAILY #30 tabs 10/19/22 01/11/23 Rx azelastine 137 mcg (0.1 %) nasal 1 spray intranasal Q12H #30 mL 12/15/22 01/11/23 Rx spray aerosol valacyclovir 1 gram tablet 500 mg PO DAILY 01/04/23 01/11/23 History (Valtrex) levothyroxine 75 mcg tablet See Rx Instructions .Route 01/06/23 01/11/23 Rx .COMPLEX #90 tabs Patient hx anesthesia problems: none Family hx anesthesia problems: none Results Review: All pre-operative results and documents have been reviewed as part of the pre-operative evaluation. [facility] Past Medical History Medical History Adult BMI 19-24 kg/sq m Adult BMI <19 kg/sq m Anxiety Asthma BMI 20.0-20.9, adult BMI 21.0-21.9, adult Bone lesion BPPV (benign paroxysmal positional vertigo) Breast CA Cervicalgia Colon cancer screening Complex tear of medial meniscus of right knee Cough Cough variant asthma Diarrhea Discoloration of skin Elevated LDL cholesterol level Elevated parathyroid hormone Encounter for preventive health examination Encounter for routine adult health examination without abnormal findings Encounter to establish care Exposure to COVID-19 virus GERD (gastroesophageal reflux disease) Heart palpitations History of chemotherapy Hot flashes Hx of breast cancer Hypersomnolence Hypothyroid Hypothyroidism (acquired) Insomnia Liver mass Mild reactive airways disease On shelter drug therapy Post menopausal syndrome RUQ abdominal pain Screening for heart disease SVT (supraventricular tachycardia) Surgical History Surgical History H/O right breast biopsy H/O umbilical hernia repair History of D&C History of repair of anterior cruciate ligament of left knee many years ago Hx of section S/P cholecystectomy Status post bunionectomy Family History Family History Grandparent Cancer Social History Social History Smoking status: Never smoker Second hand tobacco smoke exposure: No Alcohol intake: current Drinks per week: 7 Alcohol use details: socially Substance use: never Substance use type: does not use Lack of Transportation: No Lack of Food: Never True Current Housing: I Have Housing Concerned About Future Housing: No Difficulty Paying Gas/Electric Bills: No Difficulty Paying for Meds: No Currently Unemployed: No Education: Master's Degree or Higher Difficulty w/ Childcare or Family Care: No Living arrangements: with family Additional living arrangements comments: lives with daughter Gender identity (if verbalized by the patient): Female Spiritual care concerns: No Anes - Eval Final PreProcedure Day of Procedure 01/11/23 06:58 Patient weight: normal Heart: regular rate and rhythm Lungs: clear to auscultation and normal air movement Airway: Mallampati scale class II Neurological: alert and oriented Last oral intake: >/= 8 hours ASA classification: II Emergent: no Anesthetic plan:
[2023-01-11 09:17] VITALS: BP 114/58; PULSE 79; RESP 16; TEMP 36.8; O2SAT 100
[2023-01-11] MEDS: LACTATED RINGERS 1,000 ML 150 ML IV CONT (10:02)
[2023-01-11 10:24] VITALS: BP 95/66; PULSE 80; RESP 16; O2SAT 98
[2023-01-11 10:34] VITALS: BP 103/50; PULSE 71; RESP 16; O2SAT 98
[2023-01-11 10:44] VITALS: BP 100/53; PULSE 63; RESP 14; O2SAT 100
--- NOTE | 2023-01-11 12:02 | WPDANESPN ---
Anes - Prog Note Post-Op Date/Time: 01/11/23 12:02 Cardiovascular status: normal Respiratory status: normal Airway patency: baseline Mental status: baseline Post-Op hydration status: normal Vital Signs: Last Vital Signs Temp 36.8 C 01/11/23 09:17 Pulse 63 01/11/23 10:44 Resp 14 01/11/23 10:44 BP 100/53 L 01/11/23 10:44 Pulse Ox 100 01/11/23 10:44 O2 Del Method Room Air 01/11/23 10:44 Pain Score (VAS): 0 I/O: Intake & Output 01/10/23 01/11/23 01/11/23 23:59 07:59 15:59 Intake Total 1000 Balance 1000 Post-procedural complaints: none Patient Feedback: Patient satisfied with anesthetic care. Other Findings: Patient vital signs back to baseline. Patient denies nausea and vomiting. Patient's pain under control. Patient OK for discharge.
== END 2023-01-11 10:57 | disposition home or self-care (01) ==
PROVIDERS: PCP Internal Medicine; Visit Provider Internal Medicine Gastroenterology
PROC: 0DJD8ZZ Inspection of Lower Intestinal Tract, Via Natural or Artificial Opening Endoscopic (ICD-10-PCS; CPT 45378; principal; 2023-01-11 10:30)
DX: K52.9 Noninfective gastroenteritis and colitis, unspecified (principal)
CPT/HCPCS: 45380

== ENCOUNTER 2023-01-11 09:00 | Outpatient (NON) | payer OTHER, SELFPAY | END 2023-01-11 09:01 | disposition home or self-care (01) | LOC: ANHLAB 01-12 07:28 | PROVIDERS: PCP Internal Medicine; Visit Provider Internal Medicine Gastroenterology | DX: K52.9 Noninfective gastroenteritis and colitis, unspecified (principal); K63.5 Polyp of colon | CPT/HCPCS: 88305 ==

== ENCOUNTER 2023-03-09 13:39 | Outpatient (CLI) | payer OTHER, SELFPAY ==
--- NOTE | ~2023-03-09 | CT_ITS ---
EXAMINATION: CT chest abdomen pelvis w con DATE: 03/09/2023 14:07 INDICATION: Chronic diarrhea. Evaluate for neuroendocrine tumor. History of breast cancer. TECHNIQUE: Computed tomography (CT) of the chest, abdomen, and pelvis was performed with 100 CC Omnip aque 350 intravenous contrast. Automated exposure control and iterative reconstruction technique were employed. Exam dose: 411.60 mGy-cm total exam DLP. COMPARISON: 01/07/2023 and limited abdominal ultrasound examination FINDINGS: CHEST CT: Radiopaque surgical clip is noted in the mid and outer upper right breast; history of right breast ca ncer. Surgical clips are noted in the right axillary area consistent with axillary node dissection. No evid ence of axillary lymphadenopathy. No hilar or mediastinal mass lesion or lymphadenopathy. Normal heart size. No thoracic aortic aneurys m or dissection. There are calcified left hilar nodes. Multiple calcified splenic granulomas. Findings are consistent with old granulomatous disease. No pericardial or pleural effusion. Prominent band of scarring in the right apical area extending into the anterior right upper lobe. No pulmonary infiltrate or consolidation. ABDOMEN/PELVIS CT: Multiple hepatic hemangiomas are noted, with interrupted peripheral puddling of contrast material, cl assic for hemangiomas. There are at least 7 such lesions, probably more. Status post cholecystectomy. This likely accounts for mild prominence of the intrahepatic and extrahe patic bile ducts. Normal splenic size. Normal morphology of the adrenal glands. No suspicious renal mass lesion. No urinary tract calculus or hydroureteronephrosis. The urinary blad alysa, uterus and adnexal areas are unremarkable. Normal caliber of the abdominal aorta. No intraperitoneal or retroperitoneal or pelvic mass lesion or adenopathy or ascites is detected. There is asymmetric prominence of the left adnexal vessels and left gonadal vein. Normal appendix. There is a prominent amount of fecal material in the colon but no bowel obstruction, bowel wall thick ening, pneumatosis or intraperitoneal free air is detected. Included skeletal structures are unremarkable. No suspicious osteolytic or osteoblastic lesions are n oted. IMPRESSION: Multiple hepatic hemangiomas Status post cholecystectomy Normal appendix Status post right partial mastectomy and axillary node dissection Reviewed, dictated and finalized at [facility]. Reviewed, dictated and finalized at [facility].
== END 2023-03-09 13:40 ==
PROVIDERS: PCP Internal Medicine Gastroenterology; Visit Provider Internal Medicine
DX: K52.9 Noninfective gastroenteritis and colitis, unspecified (principal); D18.03 Hemangioma of intra-abdominal structures
CPT/HCPCS: 71260; 74177; Q9967

== ENCOUNTER 2023-03-19 12:13 | Outpatient (CLI) | payer OTHER, SELFPAY ==
--- NOTE | ~2023-03-19 | XR_ITS ---
EXAMINATION: XR sternum min 2V INDICATION: Sternal pain TECHNIQUE: Two views of the sternum are obtained. COMPARISON: CT, 03/09/2023 FINDINGS: No definite sternal fracture is identified. There are healed right rib fractures. There are surgical clips in the right axilla. IMPRESSION: 1. No definite sternal fracture identified. Reviewed, dictated and finalized at [facility].
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
== END 2023-03-19 12:14 ==
LOC: GOSHIMG 12:15
PROVIDERS: PCP Internal Medicine; Visit Provider Internal Medicine
DX: R07.9 Chest pain, unspecified (principal); T14.90XA Injury, unspecified, initial encounter
CPT/HCPCS: 71046; 71120

== ENCOUNTER 2025-04-20 12:28 | Outpatient (CLI) | payer BC, SELFPAY ==
--- NOTE | ~2025-04-20 | XR_ITS ---
EXAMINATION: XR hip BI 2V w AP pelvis, 04/20/2025 12:46 CDT HISTORY: Low back pain, unspecified x 2 years, no inj, no surg COMPARISON: No comparisons available. Findings: No acute fracture or malalignment. No significant degenerative changes. Soft tissues unremarkable. Impression: No acute fracture or malalignment. Reviewed, dictated and finalized at [facility]. Impression: No acute fracture or malalignment.
--- NOTE | ~2025-04-20 | XR_ITS ---
XR lumbar spine min 4V Indication: M54.50 - Low back pain, unspecified Comparison: None Findings: The vertebral heights are intact. No fracture or subluxation. The disc heights are intact. Soft tissues unremarkable Impression: No acute abnormality. Reviewed, dictated and finalized at [facility]. Impression: No acute abnormality.
== END 2025-04-20 12:29 | disposition home or self-care (01) ==
PROVIDERS: Visit Provider Internal Medicine
DX: M54.50 Low back pain, unspecified (principal)
CPT/HCPCS: 72110; 73521